=== PATIENT | female | born 1990 ===

== ENCOUNTER → 2020-08-13 08:09 | Outpatient (BNVA) | payer OTHER, SELFPAY | PROVIDERS: PCP Internal Medicine; Visit Provider Advanced Practice Midwife | DX: N92.6 Irregular menstruation, unspecified (principal) | CPT/HCPCS: 81025; 99212 ==

== ENCOUNTER 2020-08-21 10:23 | Outpatient (REF) | payer OTHER, SELFPAY ==
--- NOTE | ~2020-08-21 | US_ITS ---
EXAMINATION: FIRST TRIMESTER OB ULTRASOUND CLINICAL INFORMATION: Dating and viability COMPARISON: None TECHNIQUE: Transabdominal first trimester OB ultrasound FINDINGS: The uterus is normal in size and shape. There is an intrauterine gestational sac. This is slightly low in position in the body of the uterus. Sanctuary-rump length measures 1.5 cm suggesting gestational age of 7 weeks 1 day with estimated date of delivery of 04/07/2021. heart rate is 143 bpm. There is a yolk sac. The cervix is normal appearing. Cervical length measures 3.5 cm. The right ovary is not seen. The left ovary measures 3.9 x 2.8 x 2.5 cm. There is a 1.9 x 1.2 x 1 cm simple left ovarian cyst. There is no fluid in the pelvis. US/US OB pelvic and transvaginal IMPRESSION: Single viable intrauterine . From today's measurements, gestational age is estimated at 7 weeks 1 day with estimated date of delivery of 04/07/2021.
== END 2020-08-21 10:24 | disposition home or self-care (01) ==
LOC: HO.US 10:23
PROVIDERS: Visit Provider Advanced Practice Midwife
DX: Z34.91 Encounter for supervision of normal pregnancy, unspecified, first trimester (principal)
CPT/HCPCS: 76801; 76817

== ENCOUNTER → 2020-09-11 09:59 | Outpatient (BNVA) | payer OTHER, SELFPAY | PROVIDERS: Visit Provider Advanced Practice Midwife | DX: Z34.91 Encounter for supervision of normal pregnancy, unspecified, first trimester (principal); Z3A.10 10 weeks gestation of pregnancy | CPT/HCPCS: 99212 ==

== ENCOUNTER 2020-09-15 10:48 | Outpatient (REF) | payer OTHER, SELFPAY ==
[2020-09-15 13:20] LABS: Mean Corpuscular Volume 83.6 fL (80-98)
[2020-09-15 13:21] LABS: Hematocrit 35.6 % (37-47); Mean Corpuscular HGB Conc 30.9 g/dl (31.0-35.0); Mean Corpuscular Hemoglobin 25.8 pg (27.0-33.0); Red Blood Count 4.26 X10*6/uL (4.20-5.50); Red Cell Distribution Width 15.4 % (11.0-16.0); White Blood Count 9.7 X10*3/uL (4.8-10.8)
[2020-09-15 13:24] LABS: PLT ABN DIST 1
[2020-09-15 13:35] LABS: Glucose 1 Hour PP 50gm Dose 81 mg/dL (60-140)
[2020-09-15 13:39] LABS: Amphetamine Screen Urine Not Detected (Not Detect); Barbiturates, Urine Not Detected (Not Detect); Benzodiazepines Screen Urine Not Detected (Not Detect); Cannabinoid Screen Urine Not Detected (Not Detect); Cocaine Screen Urine Not Detected (Not Detect); Opiate Screen Urine Not Detected (Not Detect); Phencyclidine Screen Urine Not Detected (Not Detect)
[2020-09-15 13:49] LABS: Platelet Count 176 X10*3/uL (160-400)
[2020-09-15 14:07] LABS: Syphilis Screen Nonreactive (Nonreactive)
[2020-09-16 08:51] LABS: Rubella IgG Antibody 2.41 Index
[2020-09-16 09:14] LABS: HBsAGNum1 0.52 S/CO (0.00-0.99); Hepatitis B Surface Antigen Negative (Negative)
[2020-09-16 10:13] LABS: HIV AB/AG Nonreactive (Nonreactive); HIV Num 1 0.05 S/CO (0.00-0.99); ~HepC Num1 0.06 S/CO (0.00-0.79); ~Hepatitis C Antibody Nonreactive (Nonreactive)
== END 2020-09-15 10:49 | disposition home or self-care (01) ==
LOC: HO.LAB 10:48
PROVIDERS: PCP Internal Medicine; Visit Provider Advanced Practice Midwife
DX: Z32.01 Encounter for pregnancy test, result positive (principal)
CPT/HCPCS: 80307; 85027; 86762; 86780; 86787; 86803; 86850; 86900; 86901; 87086; 87340; 87389

== ENCOUNTER 2020-09-18 08:27 | Outpatient (REF) | payer OTHER, SELFPAY ==
[2020-09-19 08:50] LABS: BV Int Neg Control Negative (Negative); BV Int Pos Control Positive (Positive)
[2020-09-19 09:02] LABS: CT PCR NOT DETECTED (Not Detect.); NG PCR NOT DETECTED (Not Detect.)
== END 2020-09-18 08:28 | disposition home or self-care (01) ==
LOC: HO.LAB 08:27
PROVIDERS: Visit Provider Advanced Practice Midwife
DX: Z01.419 Encounter for gynecological examination (general) (routine) without abnormal findings (principal); O26.891 Other specified pregnancy related conditions, first trimester; N89.8 Other specified noninflammatory disorders of vagina; Z3A.11 11 weeks gestation of pregnancy; Z20.2 Contact with and (suspected) exposure to infections with a predominantly sexual mode of transmission
CPT/HCPCS: 81003; 87480; 87491; 87510; 87591; 87660; 88142; 99212

== ENCOUNTER 2020-09-19 08:28 | Outpatient (REF) | payer OTHER, SELFPAY ==
--- NOTE | ~2020-09-19 | US_ITS ---
EXAMINATION: OBSTETRICAL ULTRASOUND, FIRST TRIMESTER HISTORY: 30-year-old at 11.2 weeks of gestation NT screening COMPARISON: 08/21/2020 TECHNIQUE: Real time transabdominal imaging with color and M-mode Doppler. FINDINGS: A single, live IUP CRL of 48.5 mm c/w 11.5wks is noted. Heart Rate: 155 beats per minute. Normal yolk sac seen. NT was 0.73.mm. NB Present The embryo appears sonographically wnl for this GA. Both maternal ovaries are seen and appear normal. GESTATIONAL AGE: 1. Established GA: 11.2 wks 2. GA from [facility]: 11.5 wks ESTIMATED DATE OF DELIVERY: 1. Established KATHRINE: 04/08/2021 2. KATHRINE from [facility]: 04/05/2021 US/US OB 1T nuc measure IMPRESSION: 1. A single live IUP 2. Size equals dates 3. NT of 0.73 mm MFM Consultation: I reviewed the ultrasound findings along with significance of NT measurement. The NT of less than 3mm is generally reassuring. However, the sensitivity for T21 detection is only 60%. I reviewed the availability of serum aneuploidy screening which includes cell-free DNA and placental protein based tests. I discussed the sensitivity, false-positive rate, and other limitations associated with each test. I also reviewed the availability of invasive diagnostic tests that are associated small but definite risk of miscarriage. We also reviewed the differences between screening tests and diagnostic tests. After our discussion, she opted for the First trimester screening that is based on cell-free DNA or non-invasive testing (NIPT). The result will be faxed to your office in approximately 7 days. A follow up at 18 weeks for survey has been scheduled. Thank you very much for this referral. Total time 30 minutes. The time spent was devoted to counseling the patient about the disease and diagnosis, coordinating care including reviewing her records, pertinent lab data and studies, as well as discussing diagnostic evaluation and workup, plan therapeutic interventions and future disposition of care. This includes any additional research needed to obtain further information in formulating the plan of care of this patient. This note was generated with a voice recognition program. Please excuse any errors which may have been overlooked during my review of this note. Sometimes these errors may affect the content or meaning of a given sentence.
== END 2020-09-19 08:29 | disposition home or self-care (01) ==
LOC: HO.US 08:28
PROVIDERS: Visit Provider Advanced Practice Midwife
DX: Z34.90 Encounter for supervision of normal pregnancy, unspecified, unspecified trimester (principal); Z36.82 Encounter for antenatal screening for nuchal translucency
CPT/HCPCS: 76813

== ENCOUNTER → 2020-10-16 08:30 | Outpatient (BNVA) | payer OTHER, SELFPAY | PROVIDERS: Visit Provider Advanced Practice Midwife | DX: Z34.82 Encounter for supervision of other normal pregnancy, second trimester (principal); Z3A.15 15 weeks gestation of pregnancy | CPT/HCPCS: 99212 ==

== ENCOUNTER 2020-11-07 08:28 | Outpatient (REF) | payer OTHER, SELFPAY ==
--- NOTE | ~2020-11-07 | US_ITS ---
EXAMINATION: US OBSTETRICAL CLINICAL INFORMATION: 30-year-old at 18.2 weeks of gestation Screening for anomaly COMPARISON: 09/19/2020 TECHNIQUE: Real-time transabdominal ultrasound was performed using C1-5 megahertz transducer. FINDINGS: A single, active, fetus is seen in breech presentation. The placenta is posterior without previa, and the amniotic fluid volume is wnl. MEASUREMENTS: 1. Biparietal Diameter: 3.9 cm; 17.6 wks 2. Occipital Frontal Diameter: 5.2 cm 3. Head Circumference: 15.2 cm; 18.2 wks 4. Abdominal Circumference: 12.7 cm; 18.2 wks 5. Femur Length: 2.9 cm; 18.6 wks 6. Humerus Length: 2.6 cm; 18.2 wks 7. Tibia Length: 2.3 cm; 18.1 wks 8. Ulna Length: 2.2 cm; 17.6 wks 9. Lateral ventricle: 0.3 cm 10. Cerebellum: 1.9 cm; 19.2 wks 11. Cisterna Magna: 0.4 cm 12. Nuchal Fold: 3.6 mm 13. Heart Rate: 132 beats per minute Rt ovary: normal Lt ovary: normal Cervical length 4.0 cm on T/A. GESTATIONAL AGE: 1. Established GA: 18.2 wks 2. GA from [facility]: 18.3 wks ESTIMATED DATE OF DELIVERY: 1. Established KATHRINE: 04/08/2021 2. KATHRINE from [facility]: 04/07/2021 ANATOMY: The visualized anatomy includes but not limited to: 1. Cranium: Normal 2. Intracranial anatomy: cavum septum pellucidi, lateral ventricles, choroid plexus, cerebellum, posterior fossa, third and fourth ventricles. 3. face: orbits, lip/palate, profile, nasal bone 4. Heart: four-chamber view of the heart, ventricular septum, foramen ovale, pulmonary vein, left and right outflow tracts, three-vessel view, 3 vessel trachea view, aortic and ductal arches, situs.. 5. Diaphragm: Normal 6. Abdominal wall: Normal 7. Cord Insertion: Normal 8. Spine: Cervical, thoracic, lumbar, sacral. 9. Stomach: Normal size and shape 10. Right Kidney: Normal 11. Left Kidney: Normal 12. 3 vessel cord: Normal 13. Upper extremity: Open hands, fifth digit. 14. Lower extremity: Tibia, fibula, bilateral feet. 15. Bladder: Normal 16. Genitalia: Female, patient aware US/US OB /maternal detail IMPRESSION: 1. Single, living, intrauterine with appropriate biometry. 2. Normal survey DISCUSSION: I reviewed today's ultrasound findings. We discussed the limitations of ultrasound in diagnosing aneuploidy and other congenital abnormalities. I reviewed the differences between screening test and diagnostic test. Amniocentesis was discussed and declined. She was informed that the baseline incidence of congenital abnormalities is approximately 3-5%. Not all these conditions are diagnosable in utero. RECOMMENDATIONS: 1. Follow-up as clinically indicated Thank you for allowing me to participate in her care. Total time 20 minutes. The time spent was devoted to counseling the patient about the disease and diagnosis, coordinating care including reviewing her records, pertinent lab data and studies, as well as discussing diagnostic evaluation and workup, plan therapeutic interventions and future disposition of care. This includes any additional research needed to obtain further information in formulating the plan of care of this patient. This note was generated with a voice recognition program. Please excuse any errors which may have been overlooked during my review of this note. Sometimes these errors may affect the content or meaning of a given sentence.
== END 2020-11-07 08:29 | disposition home or self-care (01) ==
LOC: HO.US 08:28
PROVIDERS: Visit Provider Advanced Practice Midwife
DX: O35.9XX0 Maternal care for (suspected) fetal abnormality and damage, unspecified, not applicable or unspecified (principal); Z3A.18 18 weeks gestation of pregnancy
CPT/HCPCS: 76811; 76812

== ENCOUNTER → 2020-11-14 08:14 | Outpatient (BNVA) | payer OTHER, SELFPAY | PROVIDERS: Visit Provider Advanced Practice Midwife | DX: Z34.82 Encounter for supervision of other normal pregnancy, second trimester (principal) | CPT/HCPCS: 81003; 99212 ==

== ENCOUNTER → 2020-12-15 12:23 | Outpatient (BNVA) | payer OTHER, SELFPAY | PROVIDERS: PCP Internal Medicine; Visit Provider Obstetrics & Gynecology | DX: Z34.82 Encounter for supervision of other normal pregnancy, second trimester (principal); Z3A.23 23 weeks gestation of pregnancy | CPT/HCPCS: 99212 ==

== ENCOUNTER 2021-01-08 07:40 | Outpatient (REF) | payer OTHER, SELFPAY ==
[2021-01-08 09:17] LABS: Red Cell Distribution Width 15.9 % (11.0-16.0)
[2021-01-08 09:18] LABS: Hematocrit 27.6 % (37-47); Hemoglobin 8.2 g/dl (12.0-16.0); Mean Corpuscular HGB Conc 29.7 g/dl (31.0-35.0); Mean Corpuscular Hemoglobin 23.6 pg (27.0-33.0); Mean Corpuscular Volume 79.5 fL (80-98); Mean Platelet Volume 13.7 fL (9.4-12.3); Platelet Count 142 X10*3/uL (160-400); Red Blood Count 3.47 X10*6/uL (4.20-5.50); White Blood Count 11.2 X10*3/uL (4.8-10.8)
[2021-01-08 09:34] LABS: Glucose 1 Hour PP 50gm Dose 120 mg/dL (60-140)
[2021-01-09 09:00] LABS: Syphilis Screen Nonreactive (Nonreactive)
== END 2021-01-08 07:41 | disposition home or self-care (01) ==
LOC: HO.LAB 07:40
PROVIDERS: PCP Internal Medicine; Visit Provider Obstetrics & Gynecology
DX: Z34.92 Encounter for supervision of normal pregnancy, unspecified, second trimester (principal)
CPT/HCPCS: 36415; 85027; 86780

== ENCOUNTER 2021-01-15 07:50 | Outpatient (REF) | payer OTHER, SELFPAY ==
[2021-01-15 14:14] LABS: CT PCR NOT DETECTED (Not Detect.); NG PCR NOT DETECTED (Not Detect.)
[2021-01-16 08:29] LABS: BV Int Neg Control Negative (Negative)
[2021-01-16 08:30] LABS: BV Int Pos Control Positive (Positive)
== END 2021-01-15 07:51 | disposition home or self-care (01) ==
LOC: HO.LAB 07:50
PROVIDERS: PCP Internal Medicine; Visit Provider Obstetrics & Gynecology
DX: Z23 Encounter for immunization (principal); O26.892 Other specified pregnancy related conditions, second trimester; N89.8 Other specified noninflammatory disorders of vagina
CPT/HCPCS: 87480; 87491; 87510; 87591; 87660; 90471; 90715; 99212

== ENCOUNTER → 2021-01-28 08:16 | Outpatient (BNVA) | payer OTHER, SELFPAY | PROVIDERS: PCP Internal Medicine; Visit Provider Obstetrics & Gynecology | DX: O99.013 Anemia complicating pregnancy, third trimester (principal); Z3A.30 30 weeks gestation of pregnancy | CPT/HCPCS: 81003; 90686; 99212 ==

== ENCOUNTER → 2021-02-11 08:28 | Outpatient (BNVA) | payer OTHER, SELFPAY | PROVIDERS: PCP Internal Medicine; Visit Provider Advanced Practice Midwife | DX: O99.013 Anemia complicating pregnancy, third trimester (principal); Z3A.32 32 weeks gestation of pregnancy | CPT/HCPCS: 81003; 99212 ==

== ENCOUNTER → 2021-02-27 08:47 | Outpatient (BNVA) | payer OTHER, SELFPAY | PROVIDERS: PCP Internal Medicine; Visit Provider Advanced Practice Midwife | DX: O99.013 Anemia complicating pregnancy, third trimester (principal); Z3A.34 34 weeks gestation of pregnancy | CPT/HCPCS: 81003; 99212 ==

== ENCOUNTER 2021-03-13 08:28 | Outpatient (REF) | payer OTHER, SELFPAY ==
[2021-03-13 16:26] LABS: CT PCR NOT DETECTED (Not Detect.); NG PCR NOT DETECTED (Not Detect.)
== END 2021-03-13 08:29 | disposition home or self-care (01) ==
LOC: HO.LAB 08:28
PROVIDERS: PCP Internal Medicine; Visit Provider Advanced Practice Midwife
DX: Z34.93 Encounter for supervision of normal pregnancy, unspecified, third trimester (principal); Z3A.36 36 weeks gestation of pregnancy
CPT/HCPCS: 81003; 87081; 87147; 87491; 87591; 99212

== ENCOUNTER 2021-04-11 18:02 | Emergency (ER) | payer OTHER, SELFPAY ==
--- NOTE | ~2021-04-11 | US_ITS ---
EXAMINATION: US VENOUS ULTRASOUND WITH DOPPLER LOWER EXTREMITY, LEFT CLINICAL INFORMATION: Calf pain COMPARISON: None TECHNIQUE: Ultrasound of the deep veins is performed from the hip to the calf with compression sonography and color and pulse Doppler assessment. Spectral analysis with color-flow imaging is performed. FINDINGS: There is normal venous compression and respiratory variation and augmented flow. The visualized common femoral vein, superficial femoral vein, profunda femoral vein, popliteal vein, and the trifurcation region shows no evidence of deep venous thrombosis. There is no significant popliteal fossa cyst. If the patient's symptoms persist, followup ultrasound in 5 days 7 days might be of value to exclude proximal propagation from a non-visualized calf vein. US/US venous duplex LE LT IMPRESSION: No DVT demonstrated in the left lower extremity.
[2021-04-11 18:13] VITALS: BP 113/80; PULSE 66; RESP 18; TEMP 36.8; O2SAT 99; BMI 33.3
--- NOTE | 2021-04-11 20:06 | ED_ITS ---
HPI - General Adult General Chief complaint: General Medical Stated complaint: calf pain, ?blood clot Time Seen by Provider: 04/11/21 18:20 Limitations: no limitations History of Present Illness HPI narrative: This is a 30-year-old female who is about 5 days , and who has noted intermittent cramping in her left calf. She thought she noted some calf swelling as well. The patient notes she was told to avoid any heavy lifting but has been doing heavy lifting. She delivered vaginally, has also had few intermittent cramps in her lower abdomen. She denies fever, chest pain, or shortness of breath (she did have brief shortness of breath in the waiting room, but believes this was due to anxiety). She is currently . Related Data Previous Rx's Medication Instructions Recorded PNV 153-FA 400 mcg-om3 35 mg-dha 1 tab PO DAILY #30 tab 08/13/20 25 mg-epa 5 mg-fish oil chew tablet ( Gummies) cyanocobalamin (vitamin B-12) 1,000 mcg PO DAILY #90 tab 01/12/21 1,000 mcg tablet (Vitamin B-12) ferrous sulfate 325 mg (65 mg 325 mg PO BID #60 tab 01/12/21 iron) tablet Allergies Allergy/AdvReac Type Severity Reaction Status Date / Time No Known Allergies Allergy Verified 04/11/21 18:13 [No Known Allergies*] Review of Systems Constitutional: Constitutional: Denies fever(s) Cardiovascular: Cardiovascular: Reports no additional cardiovascular complaints Respiratory: Respiratory: Reports no additional respiratory complaints Gastrointestinal: Gastrointestinal: Denies nausea and Denies vomiting Musculoskeletal: Musculoskeletal: Reports muscle cramps Neurologic: Denies Sensory deficit (Neuro) [facility] Past Medical History Medical History (Updated 04/11/21 @ 20:19 by Sarthak Godinez MD) Anemia Surgical History No pertinent past surgical history Family History Family History Father Medical history non-contributory Mother Depression Chronic mental illness Maternal Grandmother Parkinson disease Depression Hypertension CVD (cardiovascular disease) Diabetes Maternal Grandfather Diabetes Hypertension Social History Social History Household Members: Spouse and Children Housing: Apartment Alcohol intake: former Patient Tobacco Use Status: Never used Tobacco Trauma History: no hx Advance Directives: No Advance Directives Information Provided: No Patient : No Sexual orientation: Straight/Heterosexual Gender identity: Female Physical Exam Vital Signs: Vital Signs: Last Vital Signs Temp 98.3 F 04/11/21 18:13 Pulse 66 04/11/21 18:13 Resp 18 04/11/21 18:13 BP 113/80 04/11/21 18:13 Pulse Ox 99 04/11/21 18:13 BMI result Body Mass Index 33.3 Const: Other: Patient initially sitting up on the gurney, breast pumping. Patient appears well clinically. No calf swelling or tenderness noted. No fullness or cords in the popliteal area or posterior thigh. No pedal edema. General: cooperative, no acute distress and alert Orientation/consciousness: patient oriented x3 HENMT: Head: Yes normal to inspection Eyes: General: appearance normal, both eyes and all related structures Eyelids: Yes eyelids normal Conjunctivae: conjunctivae normal Pupils: Equal, round and reactive pupils present Neck: Neck: Yes normal visual inspection and Yes supple Chest: Chest palpation & inspection: normal inspection of the chest Resp: Effort & Inspection: normal respiratory effort Auscultation: clear to auscultation bilaterally Cardio: Rate: regular rate Rhythm: regular rhythm Heart sounds: S1 normal heart sound present, S2 normal heart sound present, no gallops, no murmurs and no rubs GI: Palpation (GI): Soft to palpation, nontender and Other GI palpation findings present (Non-distended) Auscultation: normal bowel sounds Skin: General skin exam: no rashes or lesions noted Neuro: General: patient oriented x3, no focal motor deficits and CN's II-XI intact bilaterally Cranial nerves: Yes Equal, round and reactive pupils present Cognition (Neuro): normal cognition Motor exam (neuro): 5/5 motor strength present throughout Sensory Exam: No Sensory deficit (Neuro) Extrem: General: Yes normal to inspection and Yes no pedal edema Psych: Appearance: grossly normal Affect: normal affect Medical Decision Making MDM Narrative Medical decision making narrative: Patient recently , had some mild left calf pain, intermittent. No concerning findings on exam. Ultrasound negative for DVT. Imaging Data Venous US: Radiologist's impression: IMPRESSION: No DVT demonstrated in the left lower extremity. Discharge Plan Discharge Clinical Impression: Cramps of left lower extremity Patient Disposition: Home, Self-Care Instructions: Muscle Cramp (ED) Additional Instructions: Use acetaminophen as needed for pain. Follow up with her OBGYN as needed. Return for any new or worsened symptoms such as increased leg pain or swelling. There is no evidence of a blood clot in her leg today by ultrasound, and your exam was normal Prescriptions: No Action ferrous sulfate 325 mg (65 mg iron) Tablet 325 mg PO BID Qty: 60 RF: 3 cyanocobalamin (vitamin B-12) [Vitamin B-12] 1,000 mcg Tablet 1,000 mcg PO DAILY Qty: 90 RF: 3 Gummies 400 mcg-35 mg- 25 mg-5 mg tablet,chewable 1 tab PO DAILY Qty: 30 RF: 11
== END 2021-04-11 20:48 | disposition home or self-care (01) ==
PROVIDERS: Emergency Provider Emergency Medicine; PCP Internal Medicine
DX: M79.662 Pain in left lower leg (principal); Z39.1 Encounter for care and examination of lactating mother
CPT/HCPCS: 93971; 99283; 99284

== ENCOUNTER → 2021-04-17 11:44 | Outpatient (BNVA) | payer OTHER, SELFPAY | PROVIDERS: PCP Internal Medicine; Visit Provider Advanced Practice Midwife ==

== ENCOUNTER 2021-05-20 10:02 | Outpatient (REF) | payer OTHER, SELFPAY ==
[2021-05-20 11:44] LABS: Hematocrit 43.1 % (37.0-47.0); Hemoglobin 13.3 g/dl (12.0-16.0); Mean Corpuscular HGB Conc 30.9 g/dl (31.0-35.0); Mean Corpuscular Hemoglobin 27.3 pg (27.0-33.0); Mean Corpuscular Volume 88.3 fL (80.0-98.0); Mean Platelet Volume 12.4 fL (9.4-12.3); Platelet Count 170 X10*3/uL (160-400); Red Blood Count 4.88 X10*6/uL (4.20-5.50); Red Cell Distribution Width 12.9 % (11.0-16.0); White Blood Count 5.2 X10*3/uL (4.8-10.8)
[2021-05-20 12:29] LABS: Thyroid Stimulating Hormone 2.11 uIU/mL (0.32-4.0)
[2021-05-20 15:36] LABS: CT PCR NOT DETECTED (Not Detect.); NG PCR NOT DETECTED (Not Detect.)
== END 2021-05-20 10:03 | disposition home or self-care (01) ==
LOC: HO.LAB 10:02
PROVIDERS: PCP Internal Medicine; Visit Provider Advanced Practice Midwife
DX: Z39.2 Encounter for routine postpartum follow-up (principal); Z20.2 Contact with and (suspected) exposure to infections with a predominantly sexual mode of transmission; D64.9 Anemia, unspecified; R53.83 Other fatigue
CPT/HCPCS: 36415; 84443; 85027; 87491; 87591; 99212

== ENCOUNTER → 2021-08-28 09:57 | Outpatient (BNVA) | payer OTHER, SELFPAY | PROVIDERS: PCP Internal Medicine; Visit Provider Advanced Practice Midwife | DX: Z30.41 Encounter for surveillance of contraceptive pills (principal); Z39.1 Encounter for care and examination of lactating mother | CPT/HCPCS: 99212 ==

== ENCOUNTER 2021-09-11 12:09 | Outpatient (REF) | payer OTHER, SELFPAY ==
[2021-09-11 18:20] LABS: CT PCR NOT DETECTED (Not Detect.); NG PCR NOT DETECTED (Not Detect.)
[2021-09-12 10:26] LABS: BV Int Neg Control Negative (Negative); BV Int Pos Control Positive (Positive)
== END 2021-09-11 12:10 | disposition home or self-care (01) ==
LOC: HO.LAB 12:09
PROVIDERS: Visit Provider Advanced Practice Midwife
DX: Z11.3 Encounter for screening for infections with a predominantly sexual mode of transmission (principal); N76.0 Acute vaginitis; N92.1 Excessive and frequent menstruation with irregular cycle; Z20.2 Contact with and (suspected) exposure to infections with a predominantly sexual mode of transmission
CPT/HCPCS: 87480; 87491; 87510; 87591; 87660; 99212

== ENCOUNTER 2022-02-09 10:22 | Outpatient (REF) | payer OTHER, SELFPAY ==
[2022-02-10 13:58] LABS: BV Int Neg Control Negative (Negative); BV Int Pos Control Positive (Positive)
[2022-02-10 14:07] LABS: CT PCR INVALID (Not Detect.)
[2022-02-10 14:08] LABS: NG PCR INVALID (Not Detect.)
== END 2022-02-09 10:23 | disposition home or self-care (01) ==
LOC: HO.LNP 10:22
PROVIDERS: Visit Provider Advanced Practice Midwife
DX: N89.8 Other specified noninflammatory disorders of vagina (principal); Z11.3 Encounter for screening for infections with a predominantly sexual mode of transmission; Z30.09 Encounter for other general counseling and advice on contraception
CPT/HCPCS: 87480; 87491; 87510; 87591; 87660; 99212

== ENCOUNTER 2022-02-12 08:23 | Outpatient (REF) | payer OTHER, SELFPAY ==
[2022-02-12 16:10] LABS: CT PCR NOT DETECTED (Not Detect.); NG PCR NOT DETECTED (Not Detect.)
== END 2022-02-12 08:24 | disposition home or self-care (01) ==
LOC: HO.LAB 08:23
PROVIDERS: PCP Internal Medicine; Visit Provider Advanced Practice Midwife
DX: Z11.3 Encounter for screening for infections with a predominantly sexual mode of transmission (principal); Z20.2 Contact with and (suspected) exposure to infections with a predominantly sexual mode of transmission
CPT/HCPCS: 87491; 87591

== ENCOUNTER 2022-08-25 14:57 | Outpatient (REF) | payer BC, MEDICAID, SELFPAY ==
[2022-08-26 02:37] LABS: CT PCR DETECTED (Not Detect.); NG PCR NOT DETECTED (Not Detect.)
[2022-08-26 08:56] LABS: BV Int Neg Control Negative (Negative); BV Int Pos Control Positive (Positive)
== END 2022-08-25 14:58 | disposition home or self-care (01) ==
LOC: HO.LNP 14:57
PROVIDERS: PCP Internal Medicine; Visit Provider Advanced Practice Midwife
DX: Z01.419 Encounter for gynecological examination (general) (routine) without abnormal findings (principal); Z20.2 Contact with and (suspected) exposure to infections with a predominantly sexual mode of transmission
CPT/HCPCS: 0353U; 87480; 87510; 87660

== ENCOUNTER 2022-08-31 06:42 | Outpatient (REF) | payer BC, MEDICAID, SELFPAY ==
[2022-09-01 04:48] LABS: Syphilis Screen Nonreactive (Nonreactive)
[2022-09-01 05:19] LABS: HBsAGNum1 0.28 S/CO (0.00-0.99); HIV AB/AG Nonreactive (Nonreactive); HIV Num 1 0.06 S/CO (0.00-0.99); Hepatitis B Surface Antigen Negative (Negative); ~Hepatitis C Antibody Nonreactive (Nonreactive)
== END 2022-08-31 06:43 | disposition home or self-care (01) ==
LOC: HO.LAB 06:42
PROVIDERS: PCP Internal Medicine; Visit Provider Advanced Practice Midwife
DX: Z11.4 Encounter for screening for human immunodeficiency virus [HIV] (principal); A74.9 Chlamydial infection, unspecified; Z20.2 Contact with and (suspected) exposure to infections with a predominantly sexual mode of transmission
CPT/HCPCS: 36415; 86780; 86803; 87340; 87389

== ENCOUNTER 2022-09-21 11:17 | Outpatient (REF) | payer BC, MEDICAID, SELFPAY ==
[2022-09-21 17:44] LABS: CT PCR NOT DETECTED (Not Detect.); NG PCR NOT DETECTED (Not Detect.)
[2022-09-22 09:45] LABS: BV Int Neg Control Negative (Negative); BV Int Pos Control Positive (Positive)
== END 2022-09-21 11:18 | disposition home or self-care (01) ==
LOC: HO.LNP 11:17
PROVIDERS: PCP Internal Medicine; Visit Provider Advanced Practice Midwife
DX: Z30.09 Encounter for other general counseling and advice on contraception (principal); Z20.2 Contact with and (suspected) exposure to infections with a predominantly sexual mode of transmission; A74.9 Chlamydial infection, unspecified
CPT/HCPCS: 0353U; 81025; 87480; 87510; 87660

== ENCOUNTER 2022-11-01 08:59 | Outpatient (AMB) | payer BC, MEDICAID, SELFPAY ==
--- NOTE | 2022-11-01 09:05 | A.OFFVIS_ITS ---
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 She started with some vaginal itching and irritation on the after having sex with her and then she thought she cut herself from scratching and she looked with the mirror and she has little cuts at the base of her vagina and she starting to get little bumps on her labia and it has been very itchy and Burny and the bumps are uncomfortable and painful she is on pills for control and wants to stay on those despite previous interested in a ParaGard IUD. She is with the father of her baby and they recently had chlamydia and she says they were both treated and he was definitely the source he has a test of cure coming up and she has a test of cure scheduled on the of this month. on detailed questioning she says she is not aware and she does not know if he ever had oral herpes they have had oral sex.. To her knowledge neither have ever had genital herpes. She has not had anything like this before. [facility] Medical History Anemia Lactating mother Surgical History No pertinent past surgical history Family History Father Medical history non-contributory Mother Depression Chronic mental illness Maternal Grandmother Parkinson disease Depression Hypertension CVD (cardiovascular disease) Diabetes Maternal Grandfather Diabetes Hypertension Social History Household Members: Spouse and Children Both parents involved: Yes Housing: Apartment Alcohol intake: former Patient Tobacco Use Status: Never used Tobacco Trauma History: no hx Sexual orientation: Straight/Heterosexual Gender identity: Female Female Reproductive History Menstrual Age of Menarche: 12 Duration of menses: 3-5 days Date of last menstrual period: 10/11/22 control method: pills Total pregnancies: 3 Number of Living Children: 2 Ab spontaneous: 1 Date of last pap smear: 09/19/20 (negative) History of abnormal pap smear: No Physical Exam Vital Signs: Last Vital Signs BP 100/52 L 11/01/22 09:07 BMI result Body Mass Index 26.5 Other: external labia majora within normal limits labia minora are slightly pink and inflamed there are some open ulcerated on removed lesions at her perineum and vesicles erupting in various stages on labia minora both right and left with at least to appearing to be opening currently on left and 1 at least on right but there are multiple vesicles erupting in both areas. Speculum exam carefully done to avoid as much as possible transmitting from those areas to the inside and testing for GC chlamydia trichomoniasis bacterial vaginosis and Yina was done. Patient was shown lesions with mirror her careful hand washing discussed in detail and will treat for primary herpes outbreak as well as Yina. Assessment & Plan Assessment & Plan (1) Chlamydia infection: Comment: 08/27/22. Code(s): A74.9 - Chlamydial infection, unspecified (2) Cervical cancer screening: Comment: 09/18/20 pap= neg Code(s): Z12.4 - Encounter for screening for malignant neoplasm of cervix (3) Possible exposure to STD: Comment: Posi. It is counseling and partner treatment as well tive chlamydia to be treated with doxy Cyclen also Gardnerella to be treated with treatment of choice Code(s): Z20.2 - Contact with and (suspected) exposure to infections with a predominantly sexual mode of transmission (4) Vulvar candidiasis: Code(s): B37.31 - Acute candidiasis of vulva and vagina (5) Primary genital herpes simplex infection: Code(s): A60.00 - Herpesviral infection of urogenital system, unspecified Plan ---I discussed with the patient my strong suspicion that this in the is a primary outbreak of herpes. I explained the cultures and how long it would take to get the results, but because I strongly suspect that this is herpes, I ordered valalcyclovir for 10 days per cdc guidelines . --If appropriate, I also ordered from the following- Lidocaine Gel, Zovirax, and antifungals/ yeast preparations as needed. Also OTC pain relievers may be helpful. --I reviewed primary HSV transmission and patterns of transmission, oral to genital, as well as genital to genital, and oral to oral, and to other sites as well. -- I discussed normal pathophysiology of the herpes virus, and patterns of recurrence, and contributing factors that can lead to an outbreak or recurrence. I discussed transmission in great detail, and comfort measures in detail. -- I also recommend use of cool spray bottle of water, for estee care, to help her void ( spray while voiding and after), if that becomes painful. She may develop more lesions if this is early in the outbreak cycle. --Safer sex and limitations of condoms discussed. ( i e- they do not ever protect from vulvar or scrotal contact) I discussed other std testing as well ( hiv, hep b & c, rpr, gc/chlamydia, tr ichomoniasis), as well as common concurrent bacterial vaginosis or yeast. --additionally I addressed the enormous a motion all challenge that this presents and discussed the feelings that this always brings up. --discussed as well, issues with partner discussions, and transmission, and history and the challenge of sometimes figuring out original contact source. --also discussed personal hygiene and safety as regards intimate towels, clothing, and avoiding inadvertent touching of potentially infectious areas and then touching other mucosal membranes or open lesions, including eyes, and also protecting babies from inappropriate contact with these. --I requested that she return for a follow up visit in 10-14 days, --If needed, she may have an excuse to stay home from work or school during the worst part of this..- she declined because she wants to go to work. I am treating her with valacyclovir for 10 days twice a day to start as soon as she picks up the prescription. And I gave her prescription for Monistat cream which she may use as she feels fit and I did stress careful careful careful hand washing and being super conscious of when she touches herself in that area or anything else and not touching her eyes as she did during the visit before I could stop her hand going to her eye. - I told her is is probably going to get worse before gets better because it appears that the vesicles are just erupting now and some of them are just beginning to open and unroof. I recommend that she by a cheap plastic water bottle or catch up bottle at [facility] when she picks up her prescription so she can bring it to work and sprayed cool water while she voids so that it is less burny. I also recommend she drink lots of water so the urine is not to hot and concentrated. We will see her in 2 weeks but she since she has an appointment on the that is acceptable and will keep that appointment.. Did order blood work for her which she may do when she can. - She stressed that is not possible at all to say where the regional source of the herpes was from and neither she or he could have had oral herpes and transmitted it to the other unknowingly and a during oral sex it is possible to transmitt it from oral to genital. Orders: Orders Bacterial Vaginosis Panel Today N89.8 - Other specified noninflammatory disorders of vagina CT NG by PCR Today N89.8 - Other specified noninflammatory disorders of vagina Hepatitis B Surface Antigen Today A60.00 - Herpesviral infection of urogenital system, unspecified, Z20.2 - Contact with and (suspected) exposure to infections with a predominantly sexual mode of transmission Hepatitis C Antibody Today A60.00 - Herpesviral infection of urogenital system, unspecified, Z20.2 - Contact with and (suspected) exposure to infections with a predominantly sexual mode of transmission HIV Ab/Ag Today A60.00 - Herpesviral infection of urogenital system, unspecified, Z20.2 - Contact with and (suspected) exposure to infections with a predominantly sexual mode of transmission Syphilis Screen Today A60.00 - Herpesviral infection of urogenital system, unspecified, Z20.2 - Contact with and (suspected) exposure to infections with a predominantly sexual mode of transmission Herpes Virus Culture rflx Type Today N89.8 - Other specified noninflammatory disorders of vagina Medications: New valacyclovir 1,000 mg PO DAILY 20 tabs 0RF miconazole nitrate 2% (Miconazole-7) 1 appful vaginal BEDTIME 7 days 45 grams 1RF Coding Level of Care Code Est Pt Level 4 (93552) Diagnoses Chlamydia infection A74.9 Cervical cancer screening Z12.4 Possible exposure to STD Z20.2 Vulvar candidiasis B37.31 Primary genital herpes simplex infection A60.00
[2022-11-01 09:07] VITALS: BP 100/52; BMI 26.5
== END 2022-11-01 10:04 | disposition home or self-care (01) ==
LOC: HO.HWS 08:59
PROVIDERS: PCP Internal Medicine; Visit Provider Advanced Practice Midwife
DX: A74.9 Chlamydial infection, unspecified (principal); Z12.4 Encounter for screening for malignant neoplasm of cervix; Z20.2 Contact with and (suspected) exposure to infections with a predominantly sexual mode of transmission; B37.31 Acute candidiasis of vulva and vagina; A60.00 Herpesviral infection of urogenital system, unspecified
CPT/HCPCS: 99214

== ENCOUNTER 2022-11-01 08:59 | Outpatient (REF) | payer BC, MEDICAID, SELFPAY ==
[2022-11-02 05:56] LABS: CT PCR NOT DETECTED (Not Detect.); NG PCR NOT DETECTED (Not Detect.)
[2022-11-02 12:05] LABS: BV Int Neg Control Negative (Negative); BV Int Pos Control Positive (Positive)
== END 2022-11-01 09:00 | disposition home or self-care (01) ==
LOC: HO.LNP 08:59
PROVIDERS: PCP Internal Medicine; Visit Provider Advanced Practice Midwife
DX: N89.8 Other specified noninflammatory disorders of vagina (principal)
CPT/HCPCS: 0353U; 87255; 87480; 87510; 87660

== ENCOUNTER 2022-11-05 07:34 | Outpatient (REF) | payer BC, MEDICAID, SELFPAY ==
[2022-11-05 09:05] LABS: HBsAGNum1 0.39 S/CO (0.00-0.99); HIV AB/AG Nonreactive (Nonreactive); HIV Num 1 0.05 S/CO (0.00-0.99); Hepatitis B Surface Antigen Negative (Negative); ~HepC Num1 0.08 S/CO (0.00-0.79); ~Hepatitis C Antibody Nonreactive (Nonreactive)
[2022-11-05 10:08] LABS: Syphilis Screen Nonreactive (Nonreactive)
== END 2022-11-05 07:35 | disposition home or self-care (01) ==
LOC: HO.LAB 07:34
PROVIDERS: PCP Internal Medicine; Visit Provider Advanced Practice Midwife
DX: A60.00 Herpesviral infection of urogenital system, unspecified (principal); Z20.2 Contact with and (suspected) exposure to infections with a predominantly sexual mode of transmission
CPT/HCPCS: 36415; 86780; 86803; 87340; 87389

== ENCOUNTER 2023-01-26 13:25 | Outpatient (AMB) | payer BC, MEDICAID, SELFPAY ==
[2023-01-26 13:35] VITALS: BP 106/68; BMI 27.4
--- NOTE | 2023-01-26 13:35 | A.OFFVIS_ITS ---
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 Information Interpreted: non-clinical & clinical Gate Watchman: Gate Watchman Present (Avelina TOMLINSON) Allergies No Known Allergies [No Known Allergies*] Allergy (Verified 01/26/23 13:36) Medication List - Last Reconciled 01/26/23 by Talita Herrera CNM No Known Home Meds Is last menstrual period known: Yes Last menstrual period: 01/07/23 HPI JOSÉ Follow up HPI Details Patient did not quite remember why she was here she thought it was here for a test of cure for the chlamydia that she had had though it appears that she did have some negative cultures/testing done after the positive chlamydia that she had had Aug 25 2022. Also at the last visit she had had a recurrence of lesions that had presented with some itching and they tested positive for herpes simplex type 1. Teaching was done both at the time of the testing and afterwards as well she says she has not had any had recurrences though sometimes she gets itching but no more lesions. She is currently using condoms for now and she is wondering about getting her tubes tied she is not 100% positive she does not want to use anything with hormones. And she does not like the idea of IUDs. PFSH Medical History Lactating mother Anemia Surgical History No pertinent past surgical history Family History Father Medical history non-contributory Mother Depression Chronic mental illness Maternal Grandmother Parkinson disease Depression Hypertension CVD (cardiovascular disease) Diabetes Maternal Grandfather Diabetes Hypertension Social History Household Members: Spouse and Children Both parents involved: Yes Housing: Apartment Alcohol intake: former Patient Tobacco Use Status: Never used Tobacco Trauma History: no hx Sexual orientation: Straight/Heterosexual Gender identity: Female Female Reproductive History Menstrual Age of Menarche: 12 Date of last menstrual period: 01/07/23 Physical Exam Vital Signs: Last Vital Signs BP 106/68 01/26/23 13:35 BMI result Body Mass Index 27.4 Other: Very normal appearing speculum exam normal the vaginal mucosa and mucus cervix multiparous pink clear healthy appearing testing done for gonorrhea chlamydia trichomoniasis Gardnerella and Yina. Bimanual deferred as not necessary no lesions evident today. External Female Exam: normal external appearance and normal appearance of the urethra Speculum Exam - Vagina: normal appearance of the vagina and normal vaginal discharge Speculum Exam - Cervix: normal appearance of the cervix and Cervical os closed Assessment & Plan Assessment & Plan (1) Primary genital herpes simplex infection: Comment: Type 1 was isolated. patient has been treated and educated at the visit Code(s): A60.00 - Herpesviral infection of urogenital system, unspecified (2) Chlamydia infection: Comment: 08/27/22.; treated, test of cure done.... Code(s): A74.9 - Chlamydial infection, unspecified (3) control counseling: Code(s): Z30.09 - Encounter for other general counseling and advice on contraception Plan Again reviewed the pathophysiology of herpes simplex virus both type 1 and type 2 and how it can be passed from 1 person to the next both orally and generally and vice versa. Reviewed again how the virus is always present but retreats into the nerve endings and only erupt under certain stressors such as irritation or itching she says she has some itching but it is not severe and she does not have any lesions reviewed again that this could be yeast and not necessarily HSV though often times if somebody has a yeast infection or irritation from some other reason it can precipitate an HSV outbreak. Testing today was done for gonorrhea chlamydia trichomoniasis Gardnerella and Yina. Other testing declined. Also discussed control she inquired about what was involving getting her tubes tied and I explained that it is permanent surgery the risks involved in including infection damage to other organs bleeding and the biggest risk of regret and that she needs to be 100% certain before she embarks on that. Also discussed the alternatives such as IUDs both with and without hormones but she says she is not interested. She will think about it and I told her that if she is interested she needs to make an appointment and have a conversation with Dr. Rodriguez and signed papers and then proceed with scheduled surgery. Discussed that it would not be appropriate to do it until she is 100% certain. Orders: Orders CT NG by PCR Today A74.9 - Chlamydial infection, unspecified Bacterial Vaginosis Panel Today A74.9 - Chlamydial infection, unspecified Coding Level of Care Code Est Pt Level 3 (06377) Diagnoses Primary genital herpes simplex infection A60.00 Chlamydia infection A74.9 control counseling Z30.09
== END 2023-01-26 14:50 | disposition home or self-care (01) ==
LOC: HO.HWS 13:25
PROVIDERS: PCP Internal Medicine; Visit Provider Advanced Practice Midwife
DX: A60.00 Herpesviral infection of urogenital system, unspecified (principal); A74.9 Chlamydial infection, unspecified; Z30.09 Encounter for other general counseling and advice on contraception
CPT/HCPCS: 99213

== ENCOUNTER 2023-01-26 13:25 | Outpatient (REF) | payer BC, MEDICAID, SELFPAY ==
[2023-01-26 16:48] LABS: CT PCR NOT DETECTED (Not Detect.); NG PCR NOT DETECTED (Not Detect.)
[2023-01-27 13:55] LABS: BV Int Neg Control Negative (Negative); BV Int Pos Control Positive (Positive)
== END 2023-01-26 13:26 | disposition home or self-care (01) ==
LOC: HO.LNP 13:25
PROVIDERS: PCP Internal Medicine; Visit Provider Advanced Practice Midwife
DX: A74.9 Chlamydial infection, unspecified (principal); A60.00 Herpesviral infection of urogenital system, unspecified
CPT/HCPCS: 0353U; 87480; 87510; 87660

== ENCOUNTER 2023-01-27 08:44 | Outpatient (AMB) | payer BC, MEDICAID, SELFPAY ==
[2023-01-27 08:51] VITALS: BP 110/60; PULSE 71; O2SAT 99; BMI 27.5
--- NOTE | 2023-01-27 08:51 | A.OFFPC_ITS ---
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: No Accompanied by: Self / Same As Patient Allergies No Known Allergies [No Known Allergies*] Allergy (Verified 01/27/23 09:20) Medication List - Last Reconciled 01/27/23 by Pato Day MD PNV [id number] 400 mcg-35 mg- 25 mg-5 mg ( Gummies) 1 tab PO DAILY Tobacco use date assessed: 01/27/23 Dental Screening Dental Screen Date: 01/27/23 Did you have a dental visit in the last 12 months?: Yes Did you have a dental problem in the last 6 months where you did not have access to dental care?: No Was dental information given to patient?: Patient has dentist HPI 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 HPI Details Patient comes in today for her annual physical examination and to reestablish care - was last seen here for her one-time visit and physical exam back on 02/03/2018 (patient has not been back since) States that she feels okay but has a few issues that she would like to have checked out Has woken up in the middle of the night occasionally over the past few months and noticed that her heart feels like it is racing; has also noted that her legs feel numb during these situations and finds that she has to drink some water and it takes a while for things to calm down Denies experiencing any palpitations, tachycardia or irregular heart beats when she is awake and active Also notes that her right hip feels like it gets stuck every now and then when she is walking - noted that this seems to have started after she had her 2nd baby last year States that her is no pain in her hip when this occurs but it feels uncomfortable and she has to move and stretch her right leg a couple of times to relieve the sensation in her hip Denies any history of injury or trauma to her right hip Lastly, relates (+) occasional pain and discomfort in her wrists, especially the right wrist 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 that 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 start hurting after working for a while Has also noticed that the bone sticking out on her wrist seems to be bigger on her left wrist - is not sure if this has any relevance or not She denies any headaches or dizziness Denies any chest pains, no SOB No nausea/vomiting, no abdominal pain No change in bowel habits noted Denies any acute urinary symptoms PFSH Medical History Lactating mother Anemia Surgical History No pertinent past surgical history Family History Father Medical history non-contributory Mother Depression Chronic mental illness Maternal Grandmother Parkinson disease Depression Hypertension CVD (cardiovascular disease) Diabetes Maternal Grandfather Diabetes Hypertension Social History Household Members: Spouse and Children Housing: Apartment Alcohol intake: former Patient Tobacco Use Status: Never used Tobacco Trauma History: no hx Sexual orientation: Straight/Heterosexual Gender identity: Female Cognitive needs: No Hearing needs: No Vision needs: No Female Reproductive History Menstrual Age of Menarche: 12 Questionnaire PHQ-9 Over the last 2 weeks, how often have you been bothered by any of the following problems? 1. Little interest or pleasure in doing things: not at all 2. Feeling down, depressed, or hopeless: not at all 3. Trouble falling or staying asleep, or sleeping too much: not at all 4. Feeling tired or having little energy: not at all 5. Poor appetite or overeating: not at all 6. Feeling bad about yourself - or that you are a failure or have let yourself or your family down: not at all 7. Trouble concentrating on things, such as reading the newspaper or watching television: not at all 8. Moving or speaking so slowly that other people could have noticed. Or the opposite - being so fidgety or restless that you have been moving around a lot more than usual: not at all 9. Thoughts that you would be better off or of hurting yourself in some way: not at all Total score: 0 Depression Screening Interpretation: Negative Depression Screening Done: Yes 83140 - PHQ-9 Billing: Yes Source: Developed by Drs. Nishant Hess, Maximo Azul and colleagues, with an educational kenneth from [employer]. Thrive Questionnaire Date Thrive assessed: 01/27/23 I am a: Patient What is your living situation today?: I have a steady place to live Within the past 12 months, did the food you bought not last and you didn't have the money to get more?: Never true Within the past 12 months, did you worry whether your food would run out before you got money to buy more?: Never true Do you have trouble paying for medicines?: No Do you have trouble getting transportation to medical appointments?: No Do you have trouble paying your heating and electricity bill?: No Do you have trouble taking care of your child, family member or friend?: No Do you have trouble with day-to-day activities such as bathing, preparing meals, shopping, managing finances, etc.?: No Are you currently unemployed and looking for a job?: No Are you interested in more education?: No Please select the resources that you would like help with: None Currently or been in a relationship where the following occur: no concerns reported AUDIT C Alcohol Use Questionnaire (AUDIT-C) 1. How often do you have a drink containing alcohol?: Never 3. How often do you have six or more drinks on one occasion?: Never Total Score: 0 Score Reviewed/Action Taken: Yes KRYSTINA-7 AMB Questionnaire KRYSTINA-7 Date KRYSTINA - 7 assessed: 01/27/23 Feeling nervous, anxious, or on edge: 0 = Not at all Not being able to stop or control worryin = Not at all Worrying too much about different things: 0 = Not at all Trouble relaxin = Not at all Being so restless that it is hard to sit still: 0 = Not at all Becoming easily annoyed or irritable: 0 = Not at all Feeling afraid as if something awful might happen: 0 = Not at all Total KRYSTINA-7 score (0-4 normal; 5-9 mild; 10-14 moderate; 15-21 severe): 0 Source: Developed by Elizabeth Reyna Kurt Kroenke and colleagues, with an educational kenneth from [employer]. Review of Systems Const Denies chills, Denies fatigue, Denies fever(s), Denies headache(s) and Denies malaise Eyes Denies blurry vision, Denies change in vision, Denies irritation and Denies itchy eyes ENT Denies dysphagia, Denies dizziness, Denies otalgia, Denies headache(s), Denies nasal congestion, Denies neck pain, Denies odynophagia, Denies sinus pain and Denies sore throat Card Denies chest pain, Denies rapid heart rate, Denies irregular heart rhythm, Reports palpitations (wakes up occasionally with her heart feeling like it is racing) and Denies dyspnea Resp Denies chest congestion, Denies cough, Denies dyspnea and Denies wheezing GI Denies abdominal pain, Denies bloating, Denies constipation, Denies dysphagia, Reports heartburn (occasionally, most when she eats the wrong stuffs ), Denies diarrhea, Denies nausea, Denies odynophagia and Denies vomiting Denies hematuria, Denies urinary frequency, Denies dysuria, Denies urinary incontinence and Denies urinary urgency Musc Details: right hip feels like it gets stuck occasionally - feels uncomfortable Denies back pain, Reports arthralgias (both wrists, especially on the left side - see HPI), Denies joint swelling, Denies muscle weakness and Denies neck pain Skin/Breast Denies breast pain, Denies breast mass, Denies change in pigmentation, Denies lesions, Denies rash and Denies unusual bruising Neuro Denies dizziness, Denies headache(s) and Denies paresthesias Psych Denies anxiety and Denies depression Endo Denies fatigue and Reports palpitations (wakes up occasionally with her heart feeling like it is racing) Rainer/Lymph Denies easy bruising Aller/Immun Denies itchy eyes and Denies wheezing Physical exam (Primary Care) Vital Signs: Last Vital Signs Pulse 71 01/27/23 08:51 BP 110/60 01/27/23 08:51 Pulse Ox 99 01/27/23 08:51 Oxygen Delivery Method Room Air 01/27/23 08:51 BMI result Body Mass Index 27.5 Tobacco/Smoking Status: Tobacco use Status Tobacco use date assessed 01/27/23 01/27/23 08:55 Patient Tobacco Use Status Never used Tobacco 01/27/23 08:55 PHQ-9: PHQ-9 Score PHQ-9: Total score 0 01/27/23 09:00 Depression Screening Interpretation: Negative Thrive Assessment: Date of Thrive Assessment Date Thrive assessed 01/27/23 01/27/23 08:55 Currently or been in a relationship where the following occur: no concerns reported Const General: no acute distress, alert and awake Orientation/consciousness: patient oriented x3 HENMT Head: Yes normocephalic and Yes atraumatic Ears: external ears normal, TM's normal bilaterally and EAC's normal General nose exam: No nasal discharge present Face and sinus: Yes normal facial exam and Yes sinuses nontender Teeth and gingiva: dentition normal Throat: Yes posterior oropharynx normal and Yes tonsils normal (no TP congestion) Eyes Eyelids: Yes eyelids normal Conjunctivae: conjunctivae normal Pupils: Equal, round and reactive pupils present EOM: EOMs intact bilaterally Neck Neck: Yes no lymphadenopathy and Yes supple Thyroid: Thyroid normal Resp Auscultation: clear to auscultation bilaterally, no rales and no wheezes Cardio Rate: regular rate Rhythm: regular rhythm Heart sounds: no murmurs GI Palpation (GI): Soft to palpation, nontender and No hepatosplenomegaly present Auscultation: normal bowel sounds General: Yes no CVA tenderness Back/Spine/Pelvis Back: no CVA tenderness Thoracic/Lumbar Spine: thoracic and lumbar spine normal to inspection Skin Lesions: no lesions Rashes: no rashes Neuro General: patient oriented x3, moves all extremities, no focal motor deficits and CN's II-XI intact bilaterally Cranial nerves: Yes Equal, round and reactive pupils present Cognition (Neuro): normal cognition Gait exam (Neuro): Normal gait present Extrem General: Yes no clubbing, cyanosis or edema Right upper extremity: wrist Details: normal to inspection, Tinel's negative and Phalen's negative; no tenderness Left upper extremity: wrist (no tenderness on exam) Assessment and Plan Assessment & Plan (1) Annual physical exam: Code(s): Z00.00 - Encounter for general adult medical examination without abnormal findings Plan: Check labs She is up-to-date with her annual obstetrics gyn exam and pap smear (2) Intermittent palpitations: Code(s): R00.2 - Palpitations Plan: Will send her for some labs and EKG for further evaluation but discussed that based on her symptoms, these are more likely due to anxiety (3) Anemia: Code(s): D64.9 - Anemia, unspecified Qualifiers: Anemia type: unspecified type Qualified Code(s): D64.9 - Anemia, unspecified Plan: (+) Hx of anemia requiring iron supplementation in the past Will recheck her CBC for follow up (4) Bilateral wrist pain: Code(s): M25.531 - Pain in right wrist; M25.532 - Pain in left wrist Plan: Advised that her wrist symptoms are more likely due to tendinitis Will send her for bilateral wrist x-rays for further evaluation (5) Discomfort of right hip: Code(s): M25.551 - Pain in right hip Plan: Will send her for right hip x-rays for further evaluation Hip exam today is normal Plan Follow up in 6 months Orders: Orders Complete Blood Count Auto Diff Today R00.2 - Palpitations, Z00.00 - Encounter for general adult medical examination without abnormal findings Lipid Panel Today E78.00 - Pure hypercholesterolemia, unspecified, R00.2 - Palpitations, Z00.00 - Encounter for general adult medical examination without abnormal findings Erythrocyte Sedimentation Rate Today M25.50 - Pain in unspecified joint C Reactive Protein Today M25.50 - Pain in unspecified joint Rheumatoid Factor Today M25.50 - Pain in unspecified joint ECG 12 lead EKG Today R00.2 - Palpitations Comprehensive [place]. Panel Fast Today R00.2 - Palpitations, Z00.00 - Encounter for general adult medical examination without abnormal findings TSH reflex Free T4 Today R00.2 - Palpitations, Z00.00 - Encounter for general adult medical examination without abnormal findings UA CC w/rflx Micro + Cult Today R30.0 - Dysuria, Z00.00 - Encounter for general adult medical examination without abnormal findings Vitamin D 25-OH Total Today E55.9 - Vitamin D deficiency, unspecified, Z00.00 - Encounter for general adult medical examination without abnormal findings GREG Reflex Titer and Pattern Today M25.50 - Pain in unspecified joint XR hip RT w PEL1V Today M25.551 - Pain in right hip XR hand wrist LT Today M25.531 - Pain in right wrist, M25.532 - Pain in left wrist XR hand wrist RT Today M25.531 - Pain in right wrist, M25.532 - Pain in left wrist Coding Level of Care Code New Pt Prev Care 18-39yr([id number] Diagnoses Annual physical exam Z00.00 Intermittent palpitations R00.2 Anemia, unspecified type D64.9 Anemia type: unspecified type Bilateral wrist pain M25.531; M25.532 Discomfort of right hip M25.551
== END 2023-01-27 09:44 | disposition home or self-care (01) ==
PROVIDERS: PCP Internal Medicine; Visit Provider Internal Medicine
DX: Z00.00 Encounter for general adult medical examination without abnormal findings (principal); R00.2 Palpitations; D64.9 Anemia, unspecified; M25.531 Pain in right wrist; M25.532 Pain in left wrist; M25.551 Pain in right hip
CPT/HCPCS: 99385

== ENCOUNTER 2023-01-27 09:49 | Outpatient (REF) | payer BC, MEDICAID, SELFPAY ==
--- NOTE | ~2023-01-27 | XR_ITS ---
EXAMINATION: XR HIP, RIGHT CLINICAL INFORMATION: Pain in right hip. COMPARISON: None available. TECHNIQUE: AP view of the pelvis as well as AP and frog lateral views of the right hip. FINDINGS: Mild joint space narrowing in the bilateral hips, right greater than left. Small soft tissue calcifications adjacent to the right acetabulum. Tiny punctate soft tissue calcification adjacent to the left acetabulum. XR/XR hip RT w PEL1V IMPRESSION: Mild degenerative changes in the right hip. Additional imaging with MRI should be considered for further evaluation if there is clinical concern for fracture or other underlying pathology as MRI is more sensitive for detection.
--- NOTE | ~2023-01-27 | XR_ITS ---
EXAMINATION: XR WRIST, BILATERAL CLINICAL INFORMATION: Bilateral wrist pain COMPARISON: Left wrist 01/12/2019 TECHNIQUE: Four views of the bilateral wrists. FINDINGS: LEFT HAND: The bone mineralization is normal. Curvilinear ossific/calcific focus along the radial aspect of the base of the left third digit proximal phalanx of indeterminate age and etiology. Radiopaque marker placed by the technologist to indicate the area of concern as indicated by the patient at the level of the left wrist. 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 Mild sclerosis and narrowing along the radiocarpal joint. RIGHT HAND: The bone mineralization is normal. 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 Mild sclerosis and narrowing along the radiocarpal joint. XR/XR hand wrist LT IMPRESSION: 1. Curvilinear ossific/calcific focus along the radial aspect of the base of the left third digit proximal phalanx of indeterminate age and etiology, possibly representing an avulsion fracture fragment or soft tissue calcification of indeterminate age versus an accessory ossicle. Correlation with clinical exam to determine significance recommended. 2. 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 Recommend follow-up imaging in 10-14 days if fracture is suspected. Additional imaging with MRI should be considered for further evaluation based on the level of concern.
--- NOTE | ~2023-01-27 | XR_ITS ---
EXAMINATION: XR WRIST, BILATERAL CLINICAL INFORMATION: Bilateral wrist pain COMPARISON: Left wrist 01/12/2019 TECHNIQUE: Four views of the bilateral wrists. FINDINGS: LEFT HAND: The bone mineralization is normal. Curvilinear ossific/calcific focus along the radial aspect of the base of the left third digit proximal phalanx of indeterminate age and etiology. Radiopaque marker placed by the technologist to indicate the area of concern as indicated by the patient at the level of the left wrist. 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 Mild sclerosis and narrowing along the radiocarpal joint. RIGHT HAND: The bone mineralization is normal. 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 Mild sclerosis and narrowing along the radiocarpal joint. XR/XR hand wrist RT IMPRESSION: 1. Curvilinear ossific/calcific focus along the radial aspect of the base of the left third digit proximal phalanx of indeterminate age and etiology, possibly representing an avulsion fracture fragment or soft tissue calcification of indeterminate age versus an accessory ossicle. Correlation with clinical exam to determine significance recommended. 2. 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 Recommend follow-up imaging in 10-14 days if fracture is suspected. Additional imaging with MRI should be considered for further evaluation based on the level of concern.
--- NOTE | 2023-01-27 09:54 | ECG_ITS ---
Test Reason : RITA.2 Blood Pressure : / mmHG Vent. Rate : 069 BPM Atrial Rate : 069 BPM P-R Int : 116 ms QRS Dur : 100 ms QT Int : 414 ms P-R-T Axes : 056 069 008 degrees QTc Int : 443 ms Sinus rhythm with marked sinus arrhythmia Incomplete right bundle branch block T-wave inversion in Anterior leads Abnormal ECG No previous ECGs available Referred By: Pato Day Electronically Signed By:JAKOB ISLAS MD
[2023-01-27 10:00] LABS: MANUAL DIFF FLAG NO
[2023-01-27 10:44] LABS: Appearance Urine Clear; Color Urine Yellow; Glucose Urine UA Negative (Negative); Leukocyte Esterase Urine Small (1+) (Negative); Nitrite Urine Negative (Negative); Specific Gravity - Urine >= 1.030 (1.005-1.025); UMIC TRIGGER UACC YES; Urine Blood Negative (Negative); Urine Ketones Negative (Negative); Urine Protein Negative (Neg-Trace)
[2023-01-27 10:47] LABS: Bacteria Urine 2+ (None Seen); Hyaline Casts Urine 0-2 /LPF (0-2); RBC Urine 0-2 /HPF (0-2); UACC Culture Trigger YES
[2023-01-27 10:54] LABS: Basophils Percent Auto 0.6 % (0-2); Eosinophils Absolute Auto 0.1 X10*3/uL (0.0-0.4); Eosinophils Percent Auto 0.7 % (0-4); Hemoglobin 13.3 g/dl (12.0-16.0); Imm Gran Abs Auto 0.02 X10*3/uL (0.00-0.03); Imm Gran Pct Auto 0.3 % (0.0-0.4); Lymphocytes Absolute Auto 1.9 X10*3/uL (1.2-4.9); Lymphocytes Percent Auto 26.4 % (20-40); Mean Corpuscular HGB Conc 30.9 g/dl (31.0-35.0); Mean Corpuscular Hemoglobin 26.5 pg (27.0-33.0); Mean Corpuscular Volume 85.8 fL (80.0-98.0); Monocytes Absolute Auto 0.5 X10*3/uL (0.1-1.2); Monocytes Percent Auto 7.1 % (2-11); Neutrophils Absolute Auto 4.6 x10*3/uL (2.0-8.3); Neutrophils Percent Auto 64.9 % (45-73); Platelet Count 211 X10*3/uL (160-400); Red Blood Count 5.01 X10*6/uL (4.20-5.50); White Blood Count 7.1 X10*3/uL (4.8-10.8)
[2023-01-27 11:33] LABS: Erythrocyte Sedimentation Rate 7 MM/HR (0-20)
[2023-01-27 11:34] LABS: Alanine Aminotransferase 20 U/L (0-31); Albumin Level 4.4 g/dL (3.5-5.0); Alkaline Phosphatase 52 U/L (39-117); Anion Gap 11 (12-20); Aspartate Amino Transferase 20 U/L (5-31); Bilirubin Total 0.5 mg/dL (0.0-1.0); Blood Urea Nitrogen 12 mg/dL (9-16); C Reactive Protein 0.21 mg/dL (< or = 0.50); Calcium 9.7 mg/dL (8.4-10.2); Carbon Dioxide 23 mmol/L (22-29); Chloride 108 mmol/L (96-108); Cholesterol 199 mg/dL (<200); Estimated Glomerular Filt Rate > 60; Glucose Fasting 88 mg/dL (60-99); HDL Cholesterol 51 mg/dL (>40); LDL Cholesterol Calculated 133 mg/dL (<100); Potassium 3.8 mmol/L (3.3-5.1); Rheumatoid Factor < 13.0 IU/mL (<15.0); Sodium 138 mmol/L (135-145); Total Protein 7.9 g/dL (6.5-8.0); Triglycerides 76 mg/dL (<150)
[2023-01-27 11:48] LABS: TSH reflex Free T4 2.02 uIU/mL (0.32-4.0); Vitamin D 25-OH Total 59.3 ng/mL (>30)
[2023-01-31 12:13] LABS: Anti Nuclear Antibody Screen NEGATIVE (NEGATIVE)
== END 2023-01-27 09:50 | disposition home or self-care (01) ==
LOC: HO.XRAY 09:49
PROVIDERS: PCP Internal Medicine; Visit Provider Internal Medicine
DX: M25.532 Pain in left wrist (principal); M25.531 Pain in right wrist; M25.551 Pain in right hip; R00.2 Palpitations; E55.9 Vitamin D deficiency, unspecified; E78.00 Pure hypercholesterolemia, unspecified; R30.0 Dysuria; Z00.00 Encounter for general adult medical examination without abnormal findings
CPT/HCPCS: 36415; 73110; 73130; 73502; 80053; 80061; 81001; 82306; 84443; 85025; 85652; 86038; 86140; 86431; 87086; 87147; 93005

== ENCOUNTER 2023-02-15 12:51 | Outpatient (AMB) | payer BC, MEDICAID, SELFPAY ==
--- NOTE | 2023-02-15 13:02 | MHC.OFFVIS ---
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 States pain comes iwth lifting or over use with her left hand being the worse. Occasional swelling in bilateral hands. States being seen by PCP who ordered xrays and referred her to orthopedics. Denies injury. No other tx. 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 She also complains of having a hard bump on her left wrist for the last several months. She complains of pain in both wrists with daily activity, worse with heavy lifting or overuse. 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 She says she has worse wrist pain when performing activities such as push-ups. She likes to workout at the gym. She says she occasionally has swelling in her hands She denies any falls or known injury. She says she may have injured her wrist with heavy lifting in the past, but is unsure. She denies any prior treatment. 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, 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 Sexual orientation: Straight/Heterosexual Gender identity: Female Cognitive needs: No Hearing needs: No Vision needs: No Female Reproductive History Menstrual Age of Menarche: 12 Review of Systems Const All systems reviewed & are unremarkable except as noted in HPI and below Physical Exam Vital Signs: BMI result Body Mass Index 27.4 Const General: cooperative, healthy appearing and no acute distress Orientation/consciousness: patient oriented x3 HEENT Head: Yes normocephalic and Yes atraumatic Eyes EOM: EOMs intact bilaterally Resp Effort & Inspection: normal respiratory effort and able to speak in complete sentences Cardio Jugular venous distension: no JVD Skin General skin exam: turgor normal Rashes: no rashes Neuro General: patient oriented x3 Extrem Other: Evaluation of Bilateral Upper Extremity: The patient is alert, oriented, and in no acute distress Neuro: Median, Ulnar, Radial nerves motor and sensory intact and sensation is normal to the tips of all digits Vascular: Cap refill brisk ROM: She can make a tight fist with good strength and no pain. She can extend all her digits with good strength and no pain No locking or catching Full & symmetrical wrist pronosupination bilaterally Full & symmetrical wrist flexion and extension bilaterally No wrist her hand swelling seen today. No tenderness about the wrist bilaterally. Skin: No lacerations or abrasions. General: No Ecchymosis. No Erythema or evidence of infection. She has some dorsal prominence of the left distal ulna Some laxity of the left DRUJ, very mild discomfort when reducing the DRUJ. No laxity of the right DRUJ Radiographs: 3 views of the bilateral wrists from 01/27/23 were reviewed by me today in clinic. They show no fractures or dislocations. In regards to her left wrist, she has an old fracture at the radial base of the left middle finger proximal phalanx. The ulna does not appear displaced radiographically. She has some increased inclination of the distal radius, bilaterally. She appears to have a reasonable DRUJ bilaterally. If this is Madelung's it is certainly very mild.. Psych Appearance: grossly normal Affect: normal affect Attitude: cooperative Assessment & Plan Assessment & Plan (1) DRUJ (distal radioulnar joint) instability, post-traumatic: Code(s): M25.339 - Other instability, unspecified wrist Plan Assessment & Plan: 1. Left DRUJ instability Mildly symptomatic with some dorsal prominence of the distal ulna with pronation Full ROM at DRUJ & radial carpal joint She does not recall any particular fall or injury, but believes this occurred within the last year 2. Mild generalized bilateral wrist pain with activities, mildly increased radial inclination bilaterally Other than as noted above on not seeing any significant deformities. I educated her about this condition I ordered an MRI to assess the ligamentous structures of her left wrist in more detail I discussed possible operative treatment options I recommend she continue activity as tolerated, she should limit or avoid any heavy lifting or twisting activities with her left hand that might be painful. She will follow up when completed for MRI review. This should be a 30 minute appointment Scribed for Chelsea Reilly MD by Nilton Yin, medical physics researcher, on 02/15/23 at 2:00 PM, EST. Orders: Orders MR wrist LT wo/w con Today M25.339 - Other instability, unspecified wrist Coding Level of Care Code New Pt Level 4 (89401) Diagnoses DRUJ (distal radioulnar joint) instability, post-traumatic M25.339
[2023-02-15 13:11] VITALS: BMI 27.4
== END 2023-02-15 14:08 | disposition home or self-care (01) ==
PROVIDERS: PCP Internal Medicine; Visit Provider Orthopaedic Surgery
DX: M25.332 Other instability, left wrist (principal)
CPT/HCPCS: 99204

== ENCOUNTER → 2023-02-15 12:51 | Outpatient (BNVA) | payer BC, MEDICAID, SELFPAY | PROVIDERS: PCP Internal Medicine; Visit Provider Orthopaedic Surgery ==

== ENCOUNTER 2023-02-28 08:32 | Outpatient (AMB) | payer BC, MEDICAID, SELFPAY ==
--- NOTE | 2023-02-28 08:34 | MHC.OFFVIS ---
Intake Vital Signs 02/28/23 08:35 Height 5 ft 2 in Weight 150 lb BMI 27.4 Intake Visit Reasons: New prob-Bilateral primary osteoarthritis of hip Intake Note: Caroline is a 32 year old female who presents today as a new patient with complaints of bilateral hip pain. Patient reports that the right hip is more painful than the left. She has increased pain with exercise, walking in heels, pivoting and standing long periods of time.Pain is felt on the lateral aspect of the hip. Allergies No Known Allergies [No Known Allergies*] Allergy (Verified 02/28/23 08:36) HPI New prob-Bilateral primary osteoarthritis of hip HPI Details Caroline is a 32 year old woman who presents with complaints of bilateral hip pain, R>L. She complains of pain with daily activity, worse with prolonged walking. She was referred here by her PCP. She localizes her pain primarily to the lateral aspect of her hips. Her pain has been present for some time, but worsened after she gave last year. She reports after giving she felt her hips would get stuck and she would have to move differently to get it to release. She says this now happens only occasionally, perhaps once a month. 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, 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 Sexual orientation: Straight/Heterosexual Gender identity: Female Cognitive needs: No Hearing needs: No Vision needs: No Female Reproductive History Menstrual Age of Menarche: 12 Review of Systems Const All systems reviewed & are unremarkable except as noted in HPI and below Physical Exam Vital Signs: BMI result Body Mass Index 27.4 Const General: no acute distress, alert and awake Orientation/consciousness: patient oriented x3 HEENT Head: Yes normocephalic and Yes atraumatic Eyes EOM: EOMs intact bilaterally Resp Effort & Inspection: normal respiratory effort and able to speak in complete sentences Cardio Jugular venous distension: no JVD Skin General skin exam: turgor normal Rashes: no rashes Neuro General: patient oriented x3 Extrem Other: Mild ttp right greater troch, otherwise unremarkable exam Psych Appearance: grossly normal Affect: normal affect Attitude: cooperative Results Reviewed Results Reviewed: I personally reviewed relevant radiographs Mild joint space narrowing in the bilateral hips, right greater than left. Small soft tissue calcifications adjacent to the right acetabulum. Tiny punctate soft tissue calcification adjacent to the left acetabulum Assessment & Plan Assessment & Plan (1) Bursitis of right hip: Code(s): M70.71 - Other bursitis of hip, right hip Plan: Tenderness to palpation over the right greater trochanter. Essentially she is here for a x-ray review. She has these soft tissue calcifications adjacent to the acetabulum bilaterally but these do not appear to be causing symptoms and they are not concerning. The degenerative changes in the hip are very mild but I described if she has worsening symptoms she can return to see me. At this time however her symptoms mostly related to her right greater trochanter. There are mild and if they worsen she can return for injections or physical therapy. I do recommend activity for strengthening the hip girdle. (2) Bursitis of left hip: Code(s): M70.72 - Other bursitis of hip, left hip Plan Scribed for Dameon Elizondo MD by Nilton Yin, medical claims processor, on 02/28/23 at 8:50 AM, EST. Coding Level of Care Code New Pt Level 3 (76459) Diagnoses Bursitis of right hip M70.71 Bursitis of left hip M70.72
[2023-02-28 08:35] VITALS: BMI 27.4
== END 2023-02-28 09:04 | disposition home or self-care (01) ==
PROVIDERS: PCP Internal Medicine; Visit Provider Orthopaedic Surgery
DX: M70.71 Other bursitis of hip, right hip (principal); M70.72 Other bursitis of hip, left hip
CPT/HCPCS: 99203; 99213

== ENCOUNTER → 2023-02-28 08:32 | Outpatient (BNVA) | payer BC, MEDICAID, SELFPAY | PROVIDERS: PCP Internal Medicine; Visit Provider Orthopaedic Surgery ==

== ENCOUNTER 2023-04-07 13:21 | Outpatient (REF) | payer BC, MEDICAID, SELFPAY ==
--- NOTE | ~2023-04-07 | FL_ITS ---
Left wrist arthrogram Indications: Left wrist pain. Intra-articular gadolinium injection is needed prior to MRI. Procedure: Risks and benefits and possible complications were discussed with the patient and the consent form was signed. The patient was placed prone on the fluoroscopy table. The left wrist was prepped and draped in normal sterile fashion. 1% buffered lidocaine was used for anesthesia. A 25-gauge hypodermic needle was used to access the radiocarpal joint. Intra-articular position of the needle within the radiocarpal joint was verified using 0.5 cc of Omnipaque 300. A total of 2 mL of gadolinium/saline (1:200) contrast mixture was then injected into the radiocarpal joint. The needle was then removed and a Band-Aid was applied to the injection site. The patient tolerated the procedure well and was sent for to MRI. There were no immediate complications. FL/FL arthrogram wrist LT Impression: Fluoroscopic right wrist arthrogram The procedure was performed by Félix Andrade PA-C, and directly supervised by Dr. Rodriguez.
--- NOTE | ~2023-04-07 | MR_ITS ---
EXAMINATION: MR WRIST ARTHROGRAM, LEFT CLINICAL INFORMATION: Evaluate structures of DRUJ. COMPARISON: X-ray 01/27/2023. TECHNIQUE: MRI of the wrist without contrast is performed in a 1.5 Babr high-field scanner. FINDINGS: There is motion artifact degrading some of the sequences, limiting evaluation. BONE/JOINTS: As seen on the prior x-ray, is radial inclination of the distal surface of the radius. No acute marrow signal abnormality in the distal radius. Mild radiocarpal joint space loss. Mild degenerative signal in the base of the first proximal phalanx. The small curvilinear calcific/ossific focus along the radial aspect of the third proximal phalanx base, seen on the prior x-ray, is not clearly evident on MRI. No acute marrow edema is seen in the underlying bone. There is mild dorsal positioning of the distal ulna with respect to the radius at the distal radioulnar joint. There is strandy signal changes within the wrist joint space, which may reflect synovitis. MUSCLE/TENDONS: There is fluid signal associated with the extensor tendons, including the extensor carpi radialis longus and brevis tendons, likely related to the arthrogram. The tendons otherwise appear intact. LIGAMENTS: Motion artifact on the sequences, limiting evaluation. Motion artifact limiting evaluation of the TFCC. There is mild T2 signal within the triangular fibrocartilage, the dorsal radioulnar ligaments, suggesting degenerative changes. No gross measurable defect/full-thickness tear is seen. As noted above, there is dorsal positioning of the distal ulna with respect to the radius, of uncertain etiology/significance, could be related to positioning versus ligament tear. There is limited evaluation of the volar radioulnar ligament, with oblique orientation. In particular, the ulnar attachments of the ligament are not clearly visualized, and tearing cannot be excluded. There is mild T2 signal/fluid in the distal radioulnar joint. No definitive contrast is identified in the distal radioulnar joint, to suggest a full-thickness triangular fibrocartilage tear. The ulnar attachments of the TFCC are not well seen, suboptimally evaluated, and tearing cannot be excluded. Degenerative appearing signal in the scapholunate ligament. No definitive tear is identified. The lunotriquetral ligament appears intact. MEDIAN NERVE: Within normal limits. MR/MR wrist LT w con IMPRESSION: Motion artifact limiting evaluation. 1. 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 2. Motion artifact limiting evaluation of the TFCC. There is dorsal positioning of the distal radius with respect to the ulna, which could be related to positioning versus abnormality of the TFCC. Signal changes presumably degenerative, in the triangular fibrocartilage and the dorsal radioulnar ligament. No measurable defect or retraction is seen. Limited evaluation of the volar radioulnar ligament, detailed above. Tearing of the ulnar aspect of the ligament and the ulnar attachments of the TFCC cannot be excluded. 3. The small calcific/ossific focus along the radial aspect of the third proximal phalanx base, seen on the prior x-ray, is not clearly evident on MRI. 4. Additional findings and details as above.
[2023-04-07] MEDS: gadobutroL 2 ML VIAL IVPUSH (15:23)
[2023-04-14] MEDS: gadobutroL 2 ML VIAL IVPUSH (15:19)
== END 2023-04-07 13:22 | disposition home or self-care (01) ==
LOC: HO.XRAY 13:21
PROVIDERS: PCP Internal Medicine; Visit Provider Orthopaedic Surgery
DX: M25.332 Other instability, left wrist (principal); M25.532 Pain in left wrist
CPT/HCPCS: 20605; 25246; 73115; 73222; A9585

== ENCOUNTER → 2023-04-07 13:34 | Outpatient (BNV) | payer BC, MEDICAID, SELFPAY | PROVIDERS: PCP Internal Medicine; Visit Provider Radiology Diagnostic Radiology | DX: M25.532 Pain in left wrist (principal) | CPT/HCPCS: 20605; 73115 ==

== ENCOUNTER 2023-09-02 09:52 | Outpatient (AMB) | payer BC, MEDICAID, SELFPAY ==
[2023-09-02 10:31] VITALS: BP 118/62; BMI 28.2
--- NOTE | 2023-09-02 10:31 | A.OFFVIS_ITS ---
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 She had use condoms and patch and control pills in the past. Last year she decided to discontinue the pills and patch and go to being aware of her cycles and using condoms and she is happy with this method so far she is getting used to figuring out when she is ovulating and she is careful before and during that and after as well. She has not worried about STIs but she wants screening tests and will go for lab work to. She had 1 time this year when she felt she might be getting an outbreak and she used the Valtrex and it went away she thinks she might have some more tablets left but she had like a refill on the script. She works and she has a 2-year-old and a 6-year-old and she is doing exercises by cardio and planks and in good shape and is feeling good this year. 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, 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 Sexual orientation: Straight/Heterosexual Gender identity: Female Cognitive needs: No Hearing needs: No Vision needs: No Female Reproductive History Menstrual Age of Menarche: 12 Duration of menses: 3-5 days Date of last menstrual period: 08/25/23 control method: condoms Total pregnancies: 3 Full term: 2 Date of last pap smear: 09/19/20 (neg,previous pap 2018,WNL) History of abnormal pap smear: No Physical Exam Vital Signs: Last Vital Signs BP 118/62 09/02/23 10:31 BMI result Body Mass Index 28.2 Const General: healthy appearing, comfortable, no acute distress, well developed and alert Nutritional Appearance: average body habitus Orientation/consciousness: patient oriented x3 Limitations: no limitations HEENT Head: Yes normocephalic Neck Neck: Yes normal visual inspection Chest Chest palpation & inspection: normal inspection of the chest Breast/axilla inspection: normal inspection of the breasts and normal inspection of the axillae Breast/axilla palpation: normal palpation of the breasts and normal palpation of the axillae Resp Effort & Inspection: normal respiratory effort GI Inspection: Yes normal to inspection, No Abdominal wall edema and No distended Palpation (GI): Soft to palpation and nontender Other: Vagina pink and moist cervix multiparous pink moist with clear off-white tinged mucus cervix deep in pelvis posterior mobile nontender uterus small anteverted and anteflexed mobile nontender adnexa nontender very good tone with Kegel. General: Yes bladder normal to palpation External Female Exam: normal external appearance and normal appearance of the urethra Speculum Exam - Vagina: normal appearance of the vagina, normal palpation and normal vaginal discharge Speculum Exam - Cervix: normal appearance of the cervix, normal palpation and nontender Bimanual exam- vagina & uterus: normal bimanual exam, normal palpation, uterine size normal, bladder normal to palpation, consistency normal, normal palpation, uterine mobility normal, uterine shape normal, No Cervical tenderness present, non-tender and no cervical motion tenderness Bimanual Exam- Adnexa, other: normal adnexae, no masses, normal and No adnexal tenderness Neuro General: patient oriented x3 Results Reviewed Results Reviewed: Name: Caroline Gama Age/Sex: 30/F Attending: Talita Herrera CNM : 1990 Submitted by: Talita Herrera CNM Copies to: MR #: [id number] Status: DEP REF Collected: 09/18/20 Location: .LAB Received: 09/19/20 Interpretation Satisfactory for evaluation. Negative for intraepithelial lesion or malignancy. Clinical Information LMP: Previous PAP test: 2018, WNL Material Received ThinPrep Cervical Electronically Signed By: Ainsley Talavera 09/23/20 [id number] The Pap Test is a screening procedure with the inherent possibility of both false negative and false positive results. Results should be interpreted in the context of historic and current clinical findings. Reliability of the Pap Test is enhanced by performing the test on a regular repetitive basis. Patient: Mingo Page 1 of 1 debra: Mingo CaseCaroline Age/Sex: 32/F : 1990 Unit#: [id number] Attend Dr: Talita Herrera CNM Re11/01/22 Status: [facility] REF Location: [facility] Disch: SPEC : [id number] PAM: 11/01/22 STATUS: COMP REQ : [id number] RECD: 11/01/[address] [facility] [address]: Talita Herrera COMP: 11/05/22 ENTERED: 11/01/22-[address]: Pato Day MD ORDERED: HSV Cult rflx Test Result Flag Reference HSV Cult rflx SEE NOTE A HERPES SIMPLEX VIRUS CULTURE W/RFL TO TYPING Micro Number: [id number] Test Status: Final Specimen Source: Not given Specimen Quality: Adequate HSV Culture: Isolated HSV TYPE 2: Not Isolated HSV TYPE 1: Isolated THIS TEST WAS PERFORMED AT: [facility] [address] [place] [id number] GIANNI HOOKER MD Assessment & Plan Assessment & Plan (1) Cervical cancer screening: Comment: 09/18/20 pap= neg Code(s): Z12.4 - Encounter for screening for malignant neoplasm of cervix Category: Medical (2) Well woman exam with routine gynecological exam: Code(s): Z01.419 - Encounter for gynecological examination (general) (routine) without abnormal findings Category: Medical (3) Encounter for screening examination for sexually transmitted disease: Code(s): Z11.3 - Encounter for screening for infections with a predominantly sexual mode of transmission Category: Medical (4) Uses fertility awareness method as primary control method: Code(s): Z78.9 - Other specified health status Category: Social Hx Plan -----Discussed in this visit the following: healthy balanced diet, regular and consistent exercise, getting recommended health screens, doing the best she can for her particular health concerns, kegel exercises, pap smear screening and followup recommendations, mammography screening and SBE, normal changes in cycles in her life stage--- . See HPI for details of what we discussed in history script sent for Valtrex so she can have a for p.r.n. use reviewed use of condoms whenever there was a question of approaching or having just ovulated. Testing ordered for STIs that she can go get done today if she wishes. We will see her next year her Pap was done today and if this 1 is negative her next would be in 5 years. Orders: Orders Hepatitis B Surface Antigen Today Z01.419 - Encounter for gynecological examination (general) (routine) without abnormal findings, Z11.3 - Encounter for screening for infections with a predominantly sexual mode of transmission, Z12.4 - Encounter for screening for malignant neoplasm of cervix, Z78.9 - Other specified health status Hepatitis C Antibody Today Z01.419 - Encounter for gynecological examination (general) (routine) without abnormal findings, Z11.3 - Encounter for screening for infections with a predominantly sexual mode of transmission, Z12.4 - Encounter for screening for malignant neoplasm of cervix, Z78.9 - Other specified health status Syphilis Screen Today Z01.419 - Encounter for gynecological examination (general) (routine) without abnormal findings, Z11.3 - Encounter for screening for infections with a predominantly sexual mode of transmission, Z12.4 - Encounter for screening for malignant neoplasm of cervix, Z78.9 - Other specified health status HIV Ab/Ag Today Z01.419 - Encounter for gynecological examination (general) (routine) without abnormal findings, Z11.3 - Encounter for screening for infections with a predominantly sexual mode of transmission, Z12.4 - Encounter for screening for malignant neoplasm of cervix, Z78.9 - Other specified health status Medications: New valacyclovir One tablet 3-5 days as needed for outbreaks 1,000 mg PO DAILY 30 tabs 0RF Coding Level of Care Code Est Pt Level 3 (31840) Est Pt Prev Care 18-39y(08826) Diagnoses Cervical cancer screening Z12.4 Well woman exam with routine gynecological exam Z01.419 Encounter for screening examination for sexually transmitted disease Z11.3 Uses fertility awareness method as primary control method Z78.9
== END 2023-09-02 11:09 | disposition home or self-care (01) ==
LOC: HO.HWSM 09:53
PROVIDERS: PCP Internal Medicine; Visit Provider Advanced Practice Midwife
DX: Z01.419 Encounter for gynecological examination (general) (routine) without abnormal findings (principal); Z78.9 Other specified health status
CPT/HCPCS: 99395

== ENCOUNTER 2023-09-02 09:52 | Outpatient (REF) | payer BC, MEDICAID, SELFPAY ==
[2023-09-02 12:23] LABS: HBsAGNum1 0.36 S/CO (0.00-0.99); HIV AB/AG Nonreactive (Nonreactive); HIV Num 1 0.07 S/CO (0.00-0.99); Hepatitis B Surface Antigen Negative (Negative); ~HepC Num1 0.18 S/CO (0.00-0.79); ~Hepatitis C Antibody Nonreactive (Nonreactive)
[2023-09-02 12:24] LABS: Syphilis Screen Nonreactive (Nonreactive)
[2023-09-02 19:13] LABS: Bacterial Vaginosis PCR NEGATIVE (Negative); Candida Group PCR NOT DETECTED (Not Detect); Candida glab krusei PCR NOT DETECTED (Not Detect); Trichomonas vaginalis PCR NOT DETECTED (Not Detect)
[2023-09-02 19:32] LABS: CT PCR NOT DETECTED (Not Detect.); NG PCR NOT DETECTED (Not Detect.)
[2023-09-09 00:39] LABS: HPV mRNA E6/E7 rflx Not Detected (Not Detected)
== END 2023-09-02 09:53 | disposition home or self-care (01) ==
LOC: HO.LAB 09:52
PROVIDERS: PCP Internal Medicine; Visit Provider Advanced Practice Midwife
DX: Z01.419 Encounter for gynecological examination (general) (routine) without abnormal findings (principal); Z20.2 Contact with and (suspected) exposure to infections with a predominantly sexual mode of transmission; Z11.3 Encounter for screening for infections with a predominantly sexual mode of transmission; Z78.9 Other specified health status
CPT/HCPCS: 0352U; 0353U; 36415; 86780; 86803; 87340; 87389; 87624; 88142

== ENCOUNTER 2023-12-07 10:17 | Outpatient (AMB) | payer BC, MEDICAID, SELFPAY ==
--- NOTE | 2023-12-07 10:21 | A.OFFVIS_ITS ---
Vital Signs 12/07/23 10:21 Weight 158 lb Intake Visit Reasons: Control Consult Information Interpreted: clinical only Toxicology Teacher: Toxicology Teacher Present Allergies No Known Allergies [No Known Allergies*] Allergy (Verified 12/07/23 10:27) Medication List - Last Reconciled 12/07/23 by Talita Herrera CNM valacyclovir 1,000 mg PO DAILY Is last menstrual period known: Yes Last menstrual period: 12/13/23 Do you need a note to return to daycare/school/sports/work: No HPI HPI Control Consult: Details: Patient is here because she wants to get back on control pills she tracks her. In her last period was November 11 and it lasted till the and she thinks she is going to get her period tomorrow she has already started spotting. She does get acne before her. 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 She is nonsmoker she does not have migraines she knows how to take pills and she does not have any quest ions about them she did experience some vaginal dryness towards the end of being on them for about 4 years but that was about it and she will keep an eye on it. She has an appointment with her primary care provider in January and she is going to be getting her fasting labs done before that visit so if she keeps that appointment and her blood pressure is fine she does not need to be seen in 3 mon ths as she is an experienced pill use has not had any difficulty in the past I am reviewing the danger signs of control pills and what she should do if she experiences any of them and we will see her for her annual exam next year her last Pap smear in August was completely negative with negative HPV. 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, 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 Sexual orientation: Straight/Heterosexual Gender identity: Female Cognitive needs: No Hearing needs: No Vision needs: No Female Reproductive History Menstrual Age of Menarche: 12 Duration of menses: 3-5 days Date of last menstrual period: 12/13/23 control method: none Total pregnancies: 3 Full term: 2 Date of last pap smear: 09/05/23 (negative) Results Reviewed Results Reviewed: Name: Caroline Gama Age/Sex: 33/F Attending: Talita Herrera CNM : 1990 Submitted by: Talita Herrera CNM Copies to: Pato Day MD MR #: [id number] Status: DEP REF Collected: 09/02/23 Location: .LAB Received: 09/05/23 Interpretation Satisfactory for evaluation. No endocervical cells seen. Obscuring inflammation. Negative for intraepithelial lesion or malignancy. HPV mRNA E6/E7: NOT DETECTED This assay detects E6/E7 viral messenger RNA (mRNA) from 14 high-risk HPV types (16, 18, 31, 33, 35, 39, 45, 51, 52, 56, 58, 59, 66, 68) HPV testing performed by [facility], [place], [place]. See reference laboratory portion of the EMR for entire report. Clinical Information LMP: 08/25/2023 Previous PAP test: 2020, WNL Material Received ThinPrep-Cervical Copies To Pato Day MD [facility] [place] [place] [id number] TarrantTalita Arce CNKane [address] [facility] [address] [place] [address] Electronically Signed By: Ainsley Talavera 09/25/23 1546 The Pap Test is a screening procedure with the inherent possibility of both fal se negative and false positive results. Results should be Patient: Caroline Gama Age/Sex: 33/F MR#: [id number] Page 1 of 2 Assessment & Plan Assessment & Plan (1) Counseling for control, oral contraceptives: Code(s): Z30.09 - Encounter for other general counseling and advice on contraception Category: Medical (2) Counseling for initiation of control method: Code(s): Z30.09 - Encounter for other general counseling and advice on contraception Category: Medical Plan Patient is here because she wants to get back on control pills she tracks her. In her last period was November 11 and it lasted till the and she thinks she is going to get her period tomorrow she has already started spotting. She does get acne before her. 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 She is nonsmoker she does not have migraines she knows how to take pills and she does not have any questions about them she did experience some vaginal dryness towards the end of being on them for about 4 years but that was about it and she will keep an eye on it. She has an appointment with her primary care provider in January and she is going to be getting her fasting labs done before that visit so if she keeps that appointment and her blood pressure is fine she does not need to be seen in 3 months as she is an experienced pill use has not had any difficulty in the past I am reviewing the danger signs of control pills and what she should do if she experiences any of them and we will see her for her annual exam next year her last Pap smear in August was completely negative with negative HPV. She gets rare outbreaks of the HSV when she feels symptoms of something coming on she takes Valtrex for 1 or 2 days and it preempt it. Medications: Refilled desog-e.estradiol/e.estradiol 0.15-0.02 mgx21 /0.01 mg x 5 (Kariva (28)) 1 tab PO DAILY 84 tabs 4RF Coding Level of Care Code Est Pt Level 3 (19331) Diagnoses Counseling for control, oral contraceptives Z30. Counseling for initiation of control method Z
== END 2023-12-07 11:07 | disposition home or self-care (01) ==
PROVIDERS: PCP Internal Medicine; Visit Provider Advanced Practice Midwife
DX: Z30.09 Encounter for other general counseling and advice on contraception (principal)
CPT/HCPCS: 99213

== ENCOUNTER → 2023-12-07 10:17 | Outpatient (BNVA) | payer BC, MEDICAID, SELFPAY | PROVIDERS: PCP Internal Medicine; Visit Provider Advanced Practice Midwife ==

== ENCOUNTER 2024-01-28 07:17 | Outpatient (REF) | payer BC, SELFPAY ==
[2024-01-28 07:29] LABS: MANUAL DIFF FLAG NO
[2024-01-28 07:39] LABS: Basophils Percent Auto 0.5 % (0-2); Eosinophils Absolute Auto 0.1 X10*3/uL (0.0-0.4); Eosinophils Percent Auto 1.4 % (0-4); Hematocrit 37.6 % (37.0-47.0); Imm Gran Abs Auto 0.02 X10*3/uL (0.00-0.03); Imm Gran Pct Auto 0.4 % (0.0-0.4); Lymphocytes Absolute Auto 1.5 X10*3/uL (1.2-4.9); Lymphocytes Percent Auto 26.8 % (20-40); Mean Corpuscular HGB Conc 31.9 g/dl (31.0-35.0); Mean Corpuscular Hemoglobin 25.7 pg (27.0-33.0); Mean Corpuscular Volume 80.5 fL (80.0-98.0); Mean Platelet Volume 12.3 fL (9.4-12.3); Monocytes Absolute Auto 0.5 X10*3/uL (0.1-1.2); Monocytes Percent Auto 7.9 % (2-11); Neutrophils Absolute Auto 3.6 x10*3/uL (2.0-8.3); Platelet Count 235 X10*3/uL (160-400); Red Blood Count 4.67 X10*6/uL (4.20-5.50); White Blood Count 5.7 X10*3/uL (4.8-10.8)
[2024-01-28 07:48] LABS: Appearance Urine Clear; Color Urine Yellow; Glucose Urine UA Negative (Negative); Leukocyte Esterase Urine Moderate (2+) (Negative); Nitrite Urine Negative (Negative); PH 6.5 (5.0-9.0); UMIC TRIGGER UACC YES; Urine Blood Negative (Negative); Urine Ketones Negative (Negative); Urine Protein Negative (Neg-Trace)
[2024-01-28 08:19] LABS: Alanine Aminotransferase 16 U/L (0-31); Albumin Level 4.1 g/dL (3.5-5.0); Alkaline Phosphatase 79 U/L (39-117); Anion Gap 12 (12-20); Aspartate Amino Transferase 20 U/L (5-31); Bilirubin Total 0.6 mg/dL (0.0-1.0); Blood Urea Nitrogen 15 mg/dL (9-16); Carbon Dioxide 21 mmol/L (22-29); Chloride 108 mmol/L (96-108); Cholesterol 174 mg/dL (<200); Estimated Glomerular Filt Rate > 60; Glucose Fasting 86 mg/dL (60-99); HDL Cholesterol 43 mg/dL (>40); LDL Cholesterol Calculated 116 mg/dL (<100); Potassium 3.9 mmol/L (3.3-5.1); Sodium 137 mmol/L (135-145); Total Protein 7.2 g/dL (6.5-8.0); Triglycerides 75 mg/dL (<150)
[2024-01-28 08:30] LABS: TSH reflex Free T4 3.35 uIU/mL (0.32-4.0); Vitamin D 25-OH Total 37.8 ng/mL (>30)
[2024-01-28 08:56] LABS: Bacteria Urine 1+ (None Seen); Hyaline Casts Urine 0-2 /LPF (0-2); RBC Urine 0-2 /HPF (0-2); UACC Culture Trigger YES
== END 2024-01-28 07:18 | disposition home or self-care (01) ==
LOC: HO.LAB 07:17
PROVIDERS: PCP Internal Medicine; Visit Provider Internal Medicine
DX: Z00.00 Encounter for general adult medical examination without abnormal findings (principal); E78.00 Pure hypercholesterolemia, unspecified; E55.9 Vitamin D deficiency, unspecified; D64.9 Anemia, unspecified; R30.0 Dysuria
CPT/HCPCS: 36415; 80053; 80061; 81001; 82306; 84443; 85025; 87086; 87147

== ENCOUNTER 2024-02-14 16:16 | Outpatient (AMB) | payer BC, MEDICAID, SELFPAY ==
[2024-02-14 16:17] VITALS: BP 98/64; PULSE 73; O2SAT 99; BMI 28.4
--- NOTE | 2024-02-14 16:17 | A.OFFPC_ITS ---
Vital Signs 02/14/24 16:17 Height 5 ft 2 in Weight 155 lb 8 oz BMI 28.4 BP 98/64 Blood Pressure Location Lt brachial Position Sitting Pulse 73 Pulse Source Pulse Oximeter Pulse Oximetry (%) 99 Oxygen Delivery Method Room Air Intake Visit Reasons: annual PE Key Punch Teacher Required: No Accompanied by: Self / Same As Patient Allergies No Known Allergies [No Known Allergies*] Allergy (Verified 02/14/24 16:50) Medication List - Last Reconciled 02/14/24 by Pato Day MD valacyclovir 1,000 mg PO DAILY Tobacco use date assessed: 02/14/24 Dental Screening Dental Screen Date: 02/14/24 Did you have a dental visit in the last 12 months?: Yes Did you have a dental problem in the last 6 months where you did not have access to dental care?: No Was dental information given to patient?: Patient has dentist HPI annual PE HPI Details Patient comes in today for annual physical examination States that she feels okay except for her left ear Relates (+) bout of increased left ear pain about 3 months ago - states that the pain gradually subsided over a few days but she has noticed on and off left ear discomfort since and sometimes feels that she can hear a crackling sound inside her left ear Has also noticed that her hearing in the left ear seems somewhat off over the past few months She has not noticed any ear drainage lately She denies any headaches or dizziness; denies any fever or sore throat Denies any chest pains, no shortness of breath No nausea/vomiting, no abdominal pain No change in bowel habits noted She denies any acute urinary symptoms She had her follow-up labs done a couple of weeks ago - to discuss her results [facility] Medical History (Updated 02/20/24 @ 01:27 by Pato Day MD) Overweight (BMI 25.0-29.9) History of herpes genitalis Lactating mother Anemia Surgical History No pertinent past surgical history Family History Father Medical history non-contributory Mother Depression Chronic mental illness Maternal Grandmother Parkinson disease Depression Hypertension CVD (cardiovascular disease) Diabetes Maternal Grandfather Diabetes Hypertension Social History Household Members: Spouse and Children Both parents involved: Yes Housing: Apartment Alcohol intake: former Patient Tobacco Use Status: Never used Tobacco e-Cigarette/Vaping Use: Never Used Trauma History: no hx 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 1. Little interest or pleasure in doing things: not at all 2. Feeling down, depressed, or hopeless: not at all 3. Trouble falling or staying asleep, or sleeping too much: not at all 4. Feeling tired or having little energy: not at all 5. Poor appetite or overeating: not at all 6. Feeling bad about yourself - or that you are a failure or have let yourself or your family down: not at all 7. Trouble concentrating on things, such as reading the newspaper or watching television: not at all 8. Moving or speaking so slowly that other people could have noticed. Or the opposite - being so fidgety or restless that you have been moving around a lot more than usual: not at all 9. Thoughts that you would be better off or of hurting yourself in some way: not at all Total score: 0 Depression Screening Interpretation: Negative Depression Screening Done: Yes 70306 - PHQ-9 Billing: Yes Source: Developed by Drs. Nishant Hess, Elizabeth Almanza, Maximo Verma and colleagues, with an educational kenneth from [employer]. Thrive Questionnaire Date Thrive assessed: 02/14/24 I am a: Patient What is your living situation today?: I have a steady place to live Within the past 12 months, did the food you bought not last and you didn't have the money to get more?: Never true Within the past 12 months, did you worry whether your food would run out before you got money to buy more?: Never true Do you have trouble paying for medicines?: No Do you have trouble getting transportation to medical appointments?: No Do you have trouble paying your heating and electricity bill?: No Do you have trouble taking care of your child, family member or friend?: No Do you have trouble with day-to-day activities such as bathing, preparing meals, shopping, managing finances, etc.?: No Are you currently unemployed and looking for a job?: No Are you interested in more education?: No Please select the resources that you would like help with: None Currently or been in a relationship where the following occur: I choose not to answer THRIVE Score: 0 AUDIT C Alcohol Use Questionnaire (AUDIT-C) 1. How often do you have a drink containing alcohol?: Never 2. How many drinks containing alcohol do you have on a typical day when you are drinking?: 1 or 2 3. How often do you have six or more drinks on one occasion?: Never Total Score: 0 Score Reviewed/Action Taken: Yes KRYSTINA-7 AMB Questionnaire KRYSTINA-7 Date KRYSTINA - 7 assessed: 02/14/24 Feeling nervous, anxious, or on edge: 0 = Not at all Not being able to stop or control worryin = Not at all Worrying too much about different things: 0 = Not at all Trouble relaxin = Not at all Being so restless that it is hard to sit still: 0 = Not at all Becoming easily annoyed or irritable: 0 = Not at all Feeling afraid as if something awful might happen: 0 = Not at all Total KRYSTINA-7 score (0-4 normal; 5-9 mild; 10-14 moderate; 15-21 severe): 0 Source: Developed by Drs. Nishant Hess, Elizabeth Almanza, Maximo Verma and colleagues, with an educational kenneth from [employer]. Review of Systems Const Denies chills, Denies fatigue, Denies fever(s), Denies headache(s) and Denies malaise Eyes Denies blurry vision, Denies change in vision, Denies irritation and Denies itchy eyes ENT Denies dysphagia, Denies dizziness, Denies ear discharge, Denies otalgia (but (+) discomfort in the left ear, at times (see HPI)), Denies headache(s), Reports hearing loss (in the left ear, slightly), Denies nasal congestion, Denies neck pain, Denies odynophagia, Denies sinus pain and Denies sore throat Card Denies chest pain, Denies rapid heart rate, Denies irregular heart rhythm, Denies palpitations and Denies dyspnea Resp Denies chest congestion, Denies cough, Denies dyspnea and Denies wheezing GI Denies abdominal pain, Denies bloating, Denies constipation, Denies dysphagia, Denies heartburn, Denies diarrhea, Denies nausea, Denies odynophagia and Denies vomiting Denies hematuria, Denies urinary frequency, Denies dysuria, Denies urinary incontinence and Denies urinary urgency Musc Denies back pain, Denies arthralgias, Denies joint swelling, Denies muscle weakness and Denies neck pain Skin/Breast Denies breast pain, Denies breast mass, Denies change in pigmentation, Denies lesions, Denies rash and Denies unusual bruising Neuro Denies dizziness, Denies headache(s) and Denies paresthesias Psych Denies anxiety and Denies depression Endo Denies fatigue and Denies palpitations Rainer/Lymph Denies easy bruising Aller/Immun Denies itchy eyes and Denies wheezing Physical exam (Primary Care) Vital Signs: Last Vital Signs Pulse 73 02/14/24 16:17 BP 98/64 02/14/24 16:17 Pulse Ox 99 02/14/24 16:17 Oxygen Delivery Method Room Air 02/14/24 16:17 BMI result Body Mass Index 28.4 Tobacco/Smoking Status: Tobacco use Status Tobacco use date assessed 02/14/24 02/14/24 16:19 Patient Tobacco Use Status Never used Tobacco 02/14/24 16:19 e-Cigarette/Vaping Use Never Used 02/14/24 16:19 PHQ-9: PHQ-9 Score PHQ-9: Total score 0 02/14/24 16:52 Depression Screening Interpretation: Negative Thrive Assessment: Date of Thrive Assessment Date Thrive assessed 02/14/24 02/14/24 16:19 Currently or been in a relationship where the following occur: I choose not to answer Const General: no acute distress, alert and awake Orientation/consciousness: patient oriented x3 HENMT Head: Yes normocephalic and Yes atraumatic Ears: external ears normal, TM's normal bilaterally and EAC's normal General nose exam: No nasal discharge present Face and sinus: Yes normal facial exam and Yes sinuses nontender Teeth and gingiva: dentition normal Throat: Yes posterior oropharynx normal and Yes tonsils normal (no TP congestion) Eyes Eyelids: Yes eyelids normal Conjunctivae: conjunctivae normal Pupils: Equal, round and reactive pupils present EOM: EOMs intact bilaterally Neck Neck: Yes no lymphadenopathy and Yes supple Thyroid: Thyroid normal Resp Auscultation: clear to auscultation bilaterally, no rales and no wheezes Cardio Rate: regular rate Rhythm: regular rhythm Heart sounds: no murmurs GI Palpation (GI): Soft to palpation, nontender and No hepatosplenomegaly present Auscultation: normal bowel sounds General: Yes no CVA tenderness Back/Spine/Pelvis Back: no CVA tenderness Thoracic/Lumbar Spine: thoracic and lumbar spine normal to inspection Skin Lesions: no lesions Rashes: no rashes Neuro General: patient oriented x3, moves all extremities, no focal motor deficits and CN's II-XI intact bilaterally Cranial nerves: Yes Equal, round and reactive pupils present Cognition (Neuro): normal cognition Gait exam (Neuro): Normal gait present Extrem General: Yes no clubbing, cyanosis or edema Results Reviewed Results Reviewed: Laboratory Tests 01/28/24 01/28/24 07:23 07:26 WBC 5.7 Hgb 12.0 Hct 37.6 Plt Count 235 Sodium 137 Potassium 3.9 Creatinine 0.84 Estimated GFR > 60 Fasting Glucose 86 Calcium 9.0 D AST 20 ALT 16 Triglycerides 75 Cholesterol 174 LDL Cholesterol, Calc 116 H HDL Cholesterol 43 25-OH Vitamin D Total 37.8 TSH 3.35 Ur Specific [place] 1.020 Urine Protein Negative Urine Glucose (UA) Negative Urine Blood Negative Urine Nitrite Negative Ur Leukocyte Esterase Moderate (2+) H Coding Level of Care Code Est Pt Prev Care 18-39y(46417) Diagnoses Annual physical exam Z00.00 History of herpes genitalis Z86.19 Overweight (BMI 25.0-29.9) E66.3 Additional Codes PHQ-9 - 65918 - PHQ-9 Billing: Yes ([id number]) Assessment & Plan Assessment & Plan (1) Annual physical exam: Code(s): Z00.00 - Encounter for general adult medical examination without abnormal findings Category: Medical Plan: Results of her labs done a couple of weeks ago reviewed and discussed with patient She just had her Pap smear and annual gynecologic exam done a few months ago in August 2023 (2) History of herpes genitalis: Code(s): Z86.19 - Personal history of other infectious and parasitic diseases Category: Medical Plan: She currently has no acute out wakes Continue Valacyclovir PRN as instructed for acute outbreaks (3) Overweight (BMI 25.0-29.9): Code(s): E66.3 - Overweight Category: Medical Plan: Reinforced diet/exercise as tolerated/lose weight Plan To return in 1 year for her next annual physical examination Orders: Orders Complete Blood Count Auto Diff 1 Year D64.9 - Anemia, unspecified, Z00.00 - Encounter for general adult medical examination without abnormal findings Lipid Panel 1 Year E78.00 - Pure hypercholesterolemia, unspecified, Z00.00 - Encounter for general adult medical examination without abnormal findings TSH reflex Free T4 1 Year E78.00 - Pure hypercholesterolemia, unspecified, Z00.00 - Encounter for general adult medical examination without abnormal findings UA CC w/rflx Micro + Cult 1 Year R30.0 - Dysuria, Z00.00 - Encounter for general adult medical examination without abnormal findings Vitamin D 25-OH Total 1 Year E55.9 - Vitamin D deficiency, unspecified, Z00.00 - Encounter for general adult medical examination without abnormal findings Comprehensive Forsan. Panel Fast 1 Year E78.00 - Pure hypercholesterolemia, unspecified, Z00.00 - Encounter for general adult medical examination without abnormal findings
== END 2024-02-14 16:59 | disposition home or self-care (01) ==
PROVIDERS: PCP Internal Medicine; Visit Provider Internal Medicine
DX: Z00.00 Encounter for general adult medical examination without abnormal findings (principal); Z86.19 Personal history of other infectious and parasitic diseases; E66.3 Overweight

== ENCOUNTER → 2024-02-14 16:16 | Outpatient (BNVA) | payer BC, MEDICAID, SELFPAY | PROVIDERS: PCP Internal Medicine; Visit Provider Internal Medicine | DX: Z00.00 Encounter for general adult medical examination without abnormal findings (principal); E66.3 Overweight; Z68.28 Body mass index [BMI] 28.0-28.9, adult; Z86.19 Personal history of other infectious and parasitic diseases | CPT/HCPCS: 96127 ==

== ENCOUNTER 2024-04-18 07:42 | Outpatient (REF) | payer BC, MEDICAID, SELFPAY ==
[2024-04-18 08:47] LABS: HCG Quantitative 357 mIU/mL
== END 2024-04-18 07:43 | disposition home or self-care (01) ==
LOC: HO.LAB 07:42
PROVIDERS: PCP Internal Medicine; Visit Provider Advanced Practice Midwife
DX: O03.9 Complete or unspecified spontaneous abortion without complication (principal)
CPT/HCPCS: 36415; 84702

== ENCOUNTER 2024-05-01 06:45 | Outpatient (REF) | payer BC, MEDICAID, SELFPAY ==
[2024-05-01 08:01] LABS: HCG Quantitative 284 mIU/mL
== END 2024-05-01 06:46 | disposition home or self-care (01) ==
LOC: HO.LAB 06:45
PROVIDERS: PCP Internal Medicine; Visit Provider Advanced Practice Midwife
DX: O03.9 Complete or unspecified spontaneous abortion without complication (principal)
CPT/HCPCS: 36415; 84702

== ENCOUNTER → 2024-05-04 11:20 | Outpatient (BNVA) | payer BC, MEDICAID, SELFPAY | PROVIDERS: PCP Internal Medicine; Visit Provider Advanced Practice Midwife ==

== ENCOUNTER → 2024-05-04 11:20 | Outpatient (AMB) | payer BC, MEDICAID, SELFPAY | END | disposition home or self-care (01) | PROVIDERS: PCP Internal Medicine; Visit Provider Advanced Practice Midwife | CPT/HCPCS: 99213 ==

== ENCOUNTER 2024-05-23 12:39 | Outpatient (REF) | payer BC, MEDICAID, SELFPAY ==
[2024-05-23 13:17] LABS: HCG Quantitative < 2 mIU/mL
== END 2024-05-23 12:40 | disposition home or self-care (01) ==
LOC: HO.LAB 12:39
PROVIDERS: PCP Internal Medicine; Visit Provider Advanced Practice Midwife
DX: O03.9 Complete or unspecified spontaneous abortion without complication (principal)
CPT/HCPCS: 36415; 84702

== ENCOUNTER 2024-10-05 08:54 | Outpatient (AMB) | payer BC, MEDICAID, SELFPAY ==
[2024-10-05 08:56] VITALS: BP 94/60; PULSE 86; TEMP 36.7; O2SAT 99; BMI 28.7
--- NOTE | 2024-10-05 08:56 | AM.OFFWIN_ITS ---
Intake Vital Signs 10/05/24 08:56 Height 5 ft 2 in Weight 157 lb 2 oz BMI 28.7 BP 94/60 Blood Pressure Location Lt brachial Position Sitting Pulse 86 Pulse Source Pulse Oximeter Temp 98.1 F Temp Source Oral Pulse Oximetry (%) 99 Oxygen Delivery Method Room Air Oxygen Flow Rate 99 Intake Visit Reasons: EP Lip swelling Patient Tobacco Use Status: Never used Tobacco Director Communications Required: No Is last menstrual period known: Yes Last menstrual period: 09/23/24 Post menopausal: No Patient : No Allergies No Known Allergies (No Known Allergies*) Allergy (Verified 10/05/24 09:01) Do you need a note to return to daycare/school/sports/work: Yes HPI HPI Comments History of Present Illness Details This is a 34-year-old female presenting for evaluation of swelling in her upper lip this started approximately 2:00 a.m.. Patient states that she was having oral sex with her when the swelling started. Patient states that she is uncomfortable with a ?fat upper lip? but denies any overt pain. Patient states this has never happened before. Patient does have a history of oral herpes and states that this does not feel similar. Additionally, [place] OFF brand bug repellent on her lips yesterday, but immediately wiped it off. Patient denies any swelling of her lower lip or tongue, new oral lesions and denies any shortness of breath, difficulty swallowing or drooling. She has not taken any medication for treatment of this symptom. [facility] Medical History Overweight (BMI 25.0-29.9) History of herpes genitalis Lactating mother Anemia Surgical History No pertinent past surgical history Family History Father Medical history non-contributory Mother Depression Chronic mental illness Maternal Grandmother Parkinson disease Depression Hypertension CVD (cardiovascular disease) Diabetes Maternal Grandfather Diabetes Hypertension Social History Household Members: Spouse and Children Both parents involved: Yes Housing: Apartment Alcohol intake: former Patient Tobacco Use Status: Never used Tobacco e-Cigarette/Vaping Use: Never Used Trauma History: no hx Patient : No 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, 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 Sexual orientation: Straight/Heterosexual Gender identity: Female Cognitive needs: No Hearing needs: No Vision needs: No Female Reproductive History Menstrual Age of Menarche: 12 Date of last menstrual period: 09/23/24 Review of Systems Const All systems reviewed & are unremarkable except as noted in HPI and below Reports no additional complaints Eyes Reports no additional complaints ENT Denies throat swelling, Denies tongue swelling and Reports other (swelling upper lip) Card Reports no additional complaints and Denies dyspnea Resp Reports no additional complaints, Denies cough and Denies dyspnea GI Reports no additional complaints Reports no additional complaints Musc Reports no additional complaints Skin/Breast Reports system reviewed and no additional complaints, except as documented Neuro Reports no additional complaints Psych Reports no additional complaints Endo Reports no additional complaints Rainer/Lymph Reports no additional complaints Aller/Immun Reports no additional complaints, Denies throat swelling and Denies tongue swelling Physical Exam Vital Signs: Last Vital Signs Temp 98.1 F 10/05/24 08:56 Pulse 86 10/05/24 08:56 BP 94/60 10/05/24 08:56 Pulse Ox 99 10/05/24 08:56 Oxygen Delivery Method Room Air 10/05/24 08:56 Oxygen Flow Rate 99 10/05/24 08:56 BMI result Body Mass Index 28.7 Const General: cooperative, healthy appearing, comfortable, no acute distress, well developed, alert and awake; No ill appearing Nutritional Appearance: well nourished Orientation/consciousness: patient oriented x3 Limitations: no limitations HEENT Head: Yes normal to inspection Face and sinus: No normal facial exam (edema upper lip and philtrum without erythema or other cutaneous lesions), No abrasion, No crepitus, No ecchymosis, No erythema, Yes edema and No Facial tenderness on exam of face and sinuses Mouth: Normal oral and palatal mucosa present, lip abnormal, tongue normal, oropharynx normal, moist mucous membranes, no audible dysphonia, no drooling, lip abnormal upper swelling; without lacerations, without lesions and without rashes and no trismus Teeth and gingiva: dentition normal and gingiva normal Throat: Yes posterior oropharynx normal, Yes uvula midline, No posterior oropharynx abnormal, No uvula laterally displaced and No uvular edema Neck Neck: Yes normal visual inspection, Yes full ROM and Yes no lymphadenopathy Lymphatic: no lymphadenopathy noted Skin General skin exam: no rashes or lesions noted Neuro General: patient oriented x3 Psych Appearance: grossly normal Mental Status: mental status grossly normal Insight: Good insight present (Psych) Judgement: Good judgement present (Psych) Assessment & Plan Assessment & Plan (1) Lip edema: Comment: Patient is nontoxic appearing, is managing secretions independently, no trismus with isolated upper lip and philtrum edema; no airway compromise Code(s): R60.0 - Localized edema Plan: Patient is instructed to use diphenhydramine 25 mg q.6 hours for the next 24 hours; patient is instructed to go to the emergency department directly if she has any swelling of her tongue, is not managing her secretions or has difficulty swallowing. Patient is encouraged to follow up at any time as needed Coding Level of Care Code Est Pt Level 3 (78944) Diagnoses Lip edema R60.0 Time Spent (min) 20
== END 2024-10-05 09:17 | disposition home or self-care (01) ==
PROVIDERS: PCP Internal Medicine; Visit Provider Physician Assistant
DX: R60.0 Localized edema (principal)

== ENCOUNTER 2024-11-22 01:56 | Emergency (ER) | payer BC, MEDICAID, SELFPAY ==
--- NOTE | 2024-11-22 | ECG_ITS ---
Test Reason : CP Blood Pressure : */* mmHG Vent. Rate : 75 BPM Atrial Rate : 75 BPM P-R Int : 124 ms QRS Dur : 98 ms QT Int : 388 ms P-R-T Axes : 41 53 15 degrees QTcB Int : 433 ms Normal sinus rhythm with sinus arrhythmia Normal ECG When compared with ECG of 27-Jan-2023 09:58, No significant change was found Referred By: Generic ED Physician Electronically Signed By: CONNIE BOWLES
--- NOTE | ~2024-11-22 | XR_ITS ---
CLINICAL HISTORY: CP 1 view chest x-ray Comparison: None provided Findings: No consolidation or effusion. Heart size is normal. No acute fracture. IMPRESSION: 1. No acute findings. This document has been electronically signed by: Desmond Blunt MD on 11/22/2024 02:55:35
[2024-11-22 02:01] VITALS: BP 121/81; PULSE 95; O2SAT 99
[2024-11-22 02:03] VITALS: BMI 27.4
[2024-11-22 02:22] LABS: Hematocrit 36.3 % (37.0-47.0); Hemoglobin 11.5 g/dl (12.0-16.0); Imm Gran Abs Auto 0.01 X10*3/uL (0.00-0.03); Imm Gran Pct Auto 0.1 % (0.0-0.4); Lymphocytes Absolute Auto 2.6 X10*3/uL (1.2-4.9); MANUAL DIFF FLAG NO; Mean Corpuscular HGB Conc 31.7 g/dl (31.0-35.0); Mean Corpuscular Hemoglobin 24.8 pg (27.0-33.0); Mean Corpuscular Volume 78.4 fL (80.0-98.0); NRBC Abs Auto 0.000 X10*3/uL (0.0-0.012); NRBC Pct Auto 0.0 /100WBC (0.0-0.2); Platelet Count 238 X10*3/uL (160-400); Red Blood Count 4.63 X10*6/uL (4.20-5.50); White Blood Count 8.2 X10*3/uL (4.8-10.8)
[2024-11-22 02:26] LABS: UPreg QC Valid YES
[2024-11-22 02:27] LABS: Appearance Urine Clear; Glucose Urine UA Negative (Negative); PH 7.0 (5.0-9.0); Specific Gravity - Urine <= 1.005 (1.005-1.025); UMIC TRIGGER UACC YES
[2024-11-22 02:37] LABS: Alanine Aminotransferase 21 U/L (0-31); Albumin Level 4.2 g/dL (3.5-5.0); Alkaline Phosphatase 45 U/L (39-117); Anion Gap 11 (12-20); Aspartate Amino Transferase 22 U/L (5-31); Blood Urea Nitrogen 12 mg/dL (9-16); Calcium 9.1 mg/dL (8.4-10.2); Carbon Dioxide 23 mmol/L (22-29); Chloride 107 mmol/L (96-108); Creatinine Clr Calc Pharmacy 77.8; Estimated Glomerular Filt Rate > 60; Potassium 3.6 mmol/L (3.3-5.1); Sodium 137 mmol/L (135-145); Total Protein 7.2 g/dL (6.5-8.0)
[2024-11-22 02:42] VITALS: BP 101/62; PULSE 73; RESP 18; TEMP 36.9; O2SAT 100
[2024-11-22 02:45] LABS: Troponin-I High Sensitivity < 2.7 ng/L (<3.5-17.0)
--- NOTE | 2024-11-22 03:06 | ED.CHESTPAIN ---
HPI - Chest Pain General Chief Complaint: Chest Pain Stated Complaint: SOB, CP left sided under breast Time Seen by Provider: 11/22/24 03:05 Source: patient and family Mode of arrival: ambulatory Limitations: no limitations History of Present Illness ED Provider: Eusebio TROY HPI narrative: The patient is a 34-year-old female presenting to the ED for evaluation after she woke suddenly just prior to arrival in the ED with sensation of panic, racing heart, shortness of breath, difficulty swallowing, and feeling weak and shaky. The patient reports symptoms lasted approximately 20-30 minutes while awaiting EMS activation. Patient reports symptoms began to improve during EMS transport. The patient reports she was feeling well, at baseline when she went to bed, denies any recent fever/chills, nausea, vomiting, chest pain, shortness of breath, abdominal pain, sick contacts, trauma, or other acute complaint. The patient reports she has experienced approximately 5-6 other episodes of similar presentation over the past 3-4 months. Patient has not discussed this with her PCP but is scheduled to see her PCP in December, was planning to discuss it at that time. The patient reports symptoms in previous episodes lasted anywhere from 15 minutes to 1 hour before resolving spontaneously. Patient reports this evening her symptoms were more severe prompting EMS activation. The patient's is present and reports patient intermittently snores in her sleep. The patient denies previous sleep studies. Related Data Home Medications ?Medication ?Instructions ?Recorded ?Confirmed desogestrel-e.estradiol 0.15 1 tab PO DAILY 10/05/24 mg-0.02 mg(21)/e.estrad 0.01 mg(5) tablet (Kariva (28)) Previous Rx's ?Medication ?Instructions ?Recorded valacyclovir 1 gram tablet 1,000 mg PO DAILY #30 tabs 09/02/23 Allergies Allergy/AdvReac Type Severity Reaction Status Date / Time No Known Allergies (No Known Allergy Verified 11/22/24 02:05 Allergies*) Review of Systems Review of Systems: Yes all other systems are reviewed and are negative PMFSH Past Medical History Medical History Overweight (BMI 25.0-29.9) History of herpes genitalis Lactating mother Anemia Surgical History No pertinent past surgical history Family History Family History Father Medical history non-contributory Mother Depression Chronic mental illness Maternal Grandmother Parkinson disease Depression Hypertension CVD (cardiovascular disease) Diabetes Maternal Grandfather Diabetes Hypertension Social History Social History Household Members: Spouse and Children Housing: Apartment Alcohol intake: former Patient Tobacco Use Status: Never used Tobacco e-Cigarette/Vaping Use: Never Used Trauma History: no hx Advance Directives: No Advance Directives Information Provided: Yes Do you have a plan to hurt others: No Plan 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 Vital signs as documented. HEAD: Atraumatic, normocephalic. EYES: EOMs grossly intact, pupils equal, conjunctiva clear, no exudate. ENT: Nares patent, no discharge. Airway patent, no audible stridor, visible mucosa is pink and moist without noted lesions. NECK: Trachea is midline, no obvious masses or gross abnormalities. CHEST: Symmetric movement, normal appearance. LUNGS: LS present and CTAB, no w/r/r. Non-labored work of breathing. CARDIAC: Regular Rhythm, S1/S2 appreciated, no murmurs, rubs or gallops. ABDOMEN: Abdomen soft and non-tender x4 quadrants, no palpable masses or organomegaly. : Deferred. EXTREMITIES: Normal tone, moves all extremities spontaneously without reported pain. No obvious acute injury or deformity noted. NEURO: Alert and oriented x3, CN II-XII appear grossly intact. Cerebellar Functioning grossly intact. No obvious sensory or motor deficits. Speech clear and appropriate. PSYCH: normal affect, appropriate eye contact, fluid speech, with appropriate response to questioning. No reported suicidality or homicidality. SKIN: Warm, dry, color appropriate, normal turgor. No rashes noted. Medical Decision Making Medical Decision Making [facility] Narrative: 3:28 AM 11/22/2024 (Fiona TROY): The patient is a 34-year-old female presenting to the ED for evaluation of waking just prior to arrival in the ED in a panic state with racing heart palpitations, shortness of breath, sensation of difficulty swallowing, and generalized weakness and shakiness. The patient reports this is the 5th or 6th episode of similar presentation in the past 3-4 months, symptoms always occur while sleeping, and patient denies any complaint prior to going to sleep when symptoms occur. The patient's spouse advises patient does snore intermittently. In the ED patient is markedly well-appearing, no evidence of acute distress, no acute findings on exam. The patient's EKG is nonischemic, initial troponin is negative, laboratory evaluation reveals no leukocytosis, significant anemia, electrolyte abnormality, SANDER, or LFT abnormality. The patient's urinalysis shows no evidence of infection. test is negative. Chest x-ray shows no acute cardiopulmonary process. The patient's presentation appears consistent with obstructive sleep apnea. The patient's troponin will be repeated at 04:15, pending unremarkable repeat troponin the patient will be discharged with instructions to contact PCP office to report symptoms , discuss reassuring ED workup, and request sleep study prior to PCP visit scheduled in December. Patient stated her understanding and agreement with the recommended care plan. Admission/Observation Consideration of admission/observation: Escalation of care including admission/observation considered Lab Data [facility] Lab Attestation statement: I reviewed the patient's lab results. 11/22/24 02:17 11/22/24 02:17 Labs: Lab Results 11/22/24 Range/Units 02:17 WBC 8.2 (4.8-10.8) X10*3/uL RBC 4.63 (4.20-5.50) X10*6/uL Hgb 11.5 L (12.0-16.0) g/dl Hct 36.3 L (37.0-47.0) % MCV 78.4 L (80.0-98.0) fL MCH 24.8 L (27.0-33.0) pg MCHC 31.7 (31.0-35.0) g/dl RDW 15.0 (11.0-16.0) % Plt Count 238 (160-400) X10*3/uL MPV 12.3 (9.4-12.3) fL Immature Gran % (Auto) 0.1 (0.0-0.4) % Neut % (Auto) 59.4 (45-73) % Lymph % (Auto) 31.8 (20-40) % [place] % (Auto) 7.2 (2-11) % Eos % (Auto) 1.1 (0-4) % Baso % (Auto) 0.4 (0-2) % Lymph # (Auto) 2.6 (1.2-4.9) X10*3/uL [place] # (Auto) 0.6 (0.1-1.2) X10*3/uL Eos # (Auto) 0.1 (0.0-0.4) X10*3/uL Baso # (Auto) 0.0 (0.0-0.2) X10*3/uL Abs Immat Gran (auto) 0.01 (0.00-0.03) X10*3/uL Absolute Neuts (auto) 4.9 (2.0-8.3) x10*3/uL Absolute Nucleated RBC 0.000 (0.0-0.012) X10*3/uL Nucleated RBC % (auto) 0.0 (0.0-0.2) /100WBC Sodium 137 (135-145) mmol/L Potassium 3.6 (3.3-5.1) mmol/L Chloride 107 (96-108) mmol/L Carbon Dioxide 23 (22-29) mmol/L Anion Gap 11 L (12-20) BUN 12 (9-16) mg/dL Creatinine 0.93 (0.5-1.4) mg/dL Estim Creat Clear Calc 77.8 Estimated GFR > 60 Random Glucose 103 (60-115) mg/dL Calcium 9.1 (8.4-10.2) mg/dL Total Bilirubin 0.2 (0.0-1.0) mg/dL AST 22 (5-31) U/L ALT 21 (0-31) U/L Alkaline Phosphatase 45 (39-117) U/L Troponin I High Sens < 2.7 (<3.5-17.0) ng/L Total Protein 7.2 (6.5-8.0) g/dL Albumin 4.2 (3.5-5.0) g/dL Urine Color Yellow Urine Appearance Clear Urine pH 7.0 (5.0-9.0) Ur Specific [place] <= 1.005 (1.005-1.025) Urine Protein Negative (Neg-Trace) mg/dL Urine Glucose (UA) Negative (Negative) mg/dL Urine Ketones Negative (Negative) mg/dL Urine Blood Negative (Negative) Urine Nitrite Negative (Negative) Ur Leukocyte Esterase Trace H (Negative) Urine RBC 0-2 (0-2) /HPF Urine WBC 0-5 (0-5) /HPF Ur Squamous Epith Cells 0-2 (0-2) /HPF Urine Bacteria None Seen (None Seen) Hyaline Casts 0-2 (0-2) /LPF Urine Test NEGATIVE (NEGATIVE) Independent Interpretation I performed an independent interpretation of an: EKG (EKG shows sinus rhythm with a rate of 75, no evidence of acute ischemia, no ST elevation, no ectopy. QTC 433. Compared to previous on 01/27/2023 there are no acute morphology changes. ) Radiology Impression Discussion of test interpretation with radiology: I have reviewed the radiologist's reading. Radiologist Impression: CLINICAL HISTORY: CP 1 view chest x-ray Comparison: None provided Findings: No consolidation or effusion. Heart size is normal. No acute fracture. IMPRESSION: 1. No acute findings. This document has been electronically signed by: Desmond Blunt MD on 11/22/2024 02:55:35 Independent Historian Clinical information obtained from an independent historian. History obtained from or confirmed by: Spouse External Record Review External record reviewed: Outpatient record Discharge Plan Discharge Clinical Impression: Obstructive sleep apnea Patient Disposition: Home, Self-Care Additional Instructions: Thank you for choosing [facility]'s Emergency Department for your care today. Your laboratory evaluation, EKG, chest x-ray, and exam today are all markedly reassuring. There is no evidence of any acute cardiac, pulmonary, infectious, metabolic, or other dangerous cause for your symptoms. At this time there is no indication for admission to the hospital or continued ED observation, and it is safe to discharge you home. Your symptoms are consistent with obstructive sleep apnea. Please read the attached information regarding sleep apnea. We recommend that you follow up with the primary care provider by calling before your next scheduled appointment to discuss your symptoms, your ED workup, and to consider obtaining a sleep study prior to your next PCP appointment. Please follow up with your primary care physician for re-evaluation, additional management of your symptoms, and continued preventative care. If you do not have a primary care physician, please call the [facility] at [phone] to establish a new primary care physician. While waiting to establish your new primary care physician, you can call our Walk-in Care Clinic at [phone] for non-emergency needs. Please return to the emergency department if you develop a severe or sudden change in your symptoms, a fever over 100.4 that does not improve with Tylenol or Ibuprofen, recurrent vomiting, or any other new or worsening symptoms or concerns. Prescriptions: No Action valacyclovir 1 gram tablet 1,000 mg PO DAILY Qty: 30 0RF Rx Instructions: One tablet 3-5 days as needed for outbreaks desog-e.estradiol/e.estradiol [Kariva (28)] 0.15-0.02 mgx21 /0.01 mg x 5 tablet 1 tab PO DAILY Referrals: Physician,Jose F J [Primary Care Provider, Medical] Clinical Impression: Obstructive sleep apnea Print Language: Malian
[2024-11-22 04:48] LABS: Troponin-I High Sensitivity < 2.7 ng/L (<3.5-17.0)
[2024-11-22 05:21] VITALS: BP 104/71; PULSE 67; RESP 16; TEMP 36.3; O2SAT 100
== END 2024-11-22 05:26 | disposition home or self-care (01) ==
PROVIDERS: Physician Assistant; Emergency Provider Emergency Medicine
DX: G47.33 Obstructive sleep apnea (adult) (pediatric) (principal); R07.89 Other chest pain; R06.02 Shortness of breath; R11.2 Nausea with vomiting, unspecified; Z79.899 Other long term (current) drug therapy
CPT/HCPCS: 36415; 71045; 80053; 81001; 81003; 81025; 84484; 85025; 93005; 99283

== ENCOUNTER → 2024-11-22 02:06 | Outpatient (BNV) | payer BC, MEDICAID, SELFPAY | PROVIDERS: Emergency Provider Emergency Medicine; Visit Provider Internal Medicine | DX: R07.9 Chest pain, unspecified (principal) | CPT/HCPCS: 93010 ==

== ENCOUNTER → 2024-11-22 02:08 | Outpatient (BNV) | payer BC, MEDICAID, SELFPAY | PROVIDERS: Visit Provider Student in an Organized Health Care Education/Training Program | DX: R07.9 Chest pain, unspecified (principal) | CPT/HCPCS: 71045 ==

== ENCOUNTER 2024-12-07 08:54 | Outpatient (AMB) | payer BC, MEDICAID, SELFPAY ==
[2024-12-07 08:59] VITALS: BP 110/60; PULSE 93; O2SAT 99; BMI 28.3
--- NOTE | 2024-12-07 08:59 | MHC.PC.OV ---
Vital Signs 12/07/24 08:59 Height 5 ft 2 in Weight 155 lb BMI 28.3 BP 110/60 Blood Pressure Location Lt brachial Position Sitting Pulse 93 Pulse Oximetry (%) 99 Oxygen Delivery Method Room Air Intake Visit Reasons: [facility] 11/22 SOB, CP left sided under breast Allergies No Known Allergies (No Known Allergies*) Allergy (Verified 11/22/24 02:05) Tobacco use date assessed: 02/14/24 Dental Screening Dental Screen Date: 02/14/24 HPI HPI Comments History of Present Illness Details 34 y/o Female patient who presents to the clinic today for EDF. Pt was admitted at [facility] on 11/22 for an evaluation of symptoms of waking up in the middle of night with sensation of panic, racing heart, shortness of breath, difficulty swallowing, confused and feeling weak and shaky. She also reports Snoring on her sleep. The patient reports symptoms lasted approximately 20-30 minutes. The ED recommended Sleep Study to r/o [facility]. ON LICENSE OF [facility] Medical History (Updated 12/07/24 @ 09:28 by Shanel Farmer NP) Sleep apnea Overweight (BMI 25.0-29.9) History of herpes genitalis Lactating mother Anemia Surgical History No pertinent past surgical history Family History Father Medical history non-contributory Mother Depression Chronic mental illness Maternal Grandmother Parkinson disease Depression Hypertension CVD (cardiovascular disease) Diabetes Maternal Grandfather Diabetes Hypertension Social History Household Members: Spouse and Children Both parents involved: Yes Housing: Apartment Alcohol intake: former Patient Tobacco Use Status: Never used Tobacco e-Cigarette/Vaping Use: Never Used Trauma History: no hx 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 1. Little interest or pleasure in doing things: not at all 2. Feeling down, depressed, or hopeless: not at all 3. Trouble falling or staying asleep, or sleeping too much: several days 4. Feeling tired or having little energy: several days 5. Poor appetite or overeating: more than half the days 6. Feeling bad about yourself - or that you are a failure or have let yourself or your family down: not at all 7. Trouble concentrating on things, such as reading the newspaper or watching television: several days 8. Moving or speaking so slowly that other people could have noticed. Or the opposite - being so fidgety or restless that you have been moving around a lot more than usual: not at all 9. Thoughts that you would be better off or of hurting yourself in some way: not at all Total score: 5 30907 - PHQ-9 Billing: Yes Source: Developed by Drs. Nishant Hess, Elizabeth Almanza, Maximo Verma and colleagues, with an educational kenneth from [employer]. Thrive Questionnaire Date Thrive assessed: 12/06/24 I am a: Patient What is your living situation today?: I have a steady place to live Within the past 12 months, did the food you bought not last and you didn't have the money to get more?: Never true Within the past 12 months, did you worry whether your food would run out before you got money to buy more?: Never true Do you have trouble paying for medicines?: No Do you have trouble getting transportation to medical appointments?: No Do you have trouble paying your heating and electricity bill?: No Do you have trouble taking care of your child, family member or friend?: No Do you have trouble with day-to-day activities such as bathing, preparing meals, shopping, managing finances, etc.?: No Are you currently unemployed and looking for a job?: No Are you interested in more education?: No Please select the resources that you would like help with: None Currently or been in a relationship where the following occur: I choose not to answer THRIVE Score: 0 AUDIT C Alcohol Use Questionnaire (AUDIT-C) 1. How often do you have a drink containing alcohol?: Never 2. How many drinks containing alcohol do you have on a typical day when you are drinking?: 1 or 2 3. How often do you have six or more drinks on one occasion?: Never Total Score: 0 KRYSTINA-7 AMB Questionnaire KRYSTINA-7 Date KRYSTINA - 7 assessed: 12/07/24 Feeling nervous, anxious, or on edge: 0 = Not at all Not being able to stop or control worryin = Not at all Worrying too much about different things: 0 = Not at all Trouble relaxin = Not at all Being so restless that it is hard to sit still: 0 = Not at all Becoming easily annoyed or irritable: 0 = Not at all Feeling afraid as if something awful might happen: 0 = Not at all Total KRYSTINA-7 score (0-4 normal; 5-9 mild; 10-14 moderate; 15-21 severe): 0 Source: Developed by Drs. Nishant Hess, Elizabeth Almanza, Maximo Verma and colleagues, with an educational kenneth from [employer]. KRYSTINA-7 Assessment Billing KRYSTINA-7 Assessment Tool: KRYSTINA-7 Assessment 41277 Review of Systems Const All systems reviewed & are unremarkable except as noted in HPI and below Physical exam (Primary Care) Vital Signs: Last Vital Signs Pulse 93 12/07/24 08:59 BP 110/60 12/07/24 08:59 Pulse Ox 99 12/07/24 08:59 Oxygen Delivery Method Room Air 12/07/24 08:59 BMI result Body Mass Index 28.3 Tobacco/Smoking Status: Tobacco use Status Tobacco use date assessed 02/14/24 12/07/24 09:02 Patient Tobacco Use Status Never used Tobacco 12/07/24 09:02 e-Cigarette/Vaping Use Never Used 12/07/24 09:02 PHQ-9: PHQ-9 Score PHQ-9: Total score 5 12/07/24 09:02 Thrive Assessment: Date of Thrive Assessment Date Thrive assessed 12/06/24 12/07/24 09:02 Currently or been in a relationship where the following occur: I choose not to answer Const General: no acute distress Nutritional Appearance: well nourished Orientation/consciousness: patient oriented x3 Resp Effort & Inspection: normal respiratory effort Auscultation: clear to auscultation bilaterally Cardio Heart sounds: S1 normal heart sound present and S2 normal heart sound present Neuro General: patient oriented x3, gait normal and moves all extremities Motor exam (neuro): 5/5 motor strength present throughout Psych Speech and movement: Normal speech and movement present Coding Level of Care Code Est Pt Level 4 (36228) Diagnoses Sleep apnea G47.30 Primary sleep apnea of type: unspecified type Additional Codes KRYSTINA-7 Assessment Billing - KRYSTINA-7 Assessment Tool: KRYSTINA-7 Assessment 65698 ([id number]) PHQ-9 - 80624 - PHQ-9 Billing: Yes ([id number]) Time Spent (min) 20 Assessment & Plan Assessment & Plan (1) Sleep apnea: Code(s): G47.30 - Sleep apnea, unspecified Category: Medical Qualifiers: Primary sleep apnea of type: unspecified type Plan: Placed referral to Sleep clinic Advised Pt not sleep on her Back, try side sleeping. Discussed Good Sleep Hygiene. F/U with PCP. Orders: Referrals Sleep Medicine Referral G47.30 - Sleep apnea, unspecified
== END 2024-12-07 10:36 | disposition home or self-care (01) ==
LOC: HO.HMCH 08:54
PROVIDERS: Visit Provider Nurse Practitioner Family
DX: G47.30 Sleep apnea, unspecified (principal)

== ENCOUNTER → 2024-12-07 08:54 | Outpatient (BNVA) | payer BC, MEDICAID, SELFPAY | PROVIDERS: Visit Provider Nurse Practitioner Family | DX: E66.3 Overweight (principal); G47.30 Sleep apnea, unspecified; Z68.28 Body mass index [BMI] 28.0-28.9, adult | CPT/HCPCS: 96127 ==

== ENCOUNTER 2024-12-11 08:51 | Outpatient (AMB) | payer BC, MEDICAID, SELFPAY ==
[2024-12-11 09:06] VITALS: BP 108/60; PULSE 73; O2SAT 99; BMI 28.0
--- NOTE | 2024-12-11 09:06 | A.OFFVIS_ITS ---
Vital Signs 12/11/24 09:06 Height 5 ft 2 in Weight 153 lb 4 oz BMI 28.0 BP 108/60 Blood Pressure Location Rt brachial Position Sitting Pulse 73 Pulse Source Pulse Oximeter Pulse Oximetry (%) 99 Oxygen Delivery Method Room Air Intake Visit Reasons: INP - Sleep apnea Intake Note: Patient presents [employer]. waking up in the middle of night with sensation of panic, racing heart, shortness of breath, difficulty swallowing, confused and feeling weak and shaky. She also reports Snoring/gasping in her sleep. The patient reports symptoms lasted approximately 20-30 minutes. Goes to bed at 11pm-12am wakes up 6:30-7am. No history of sleep studies. Accompanied by: Self / Same As Patient Allergies No Known Allergies (No Known Allergies*) Allergy (Verified 12/11/24 09:10) HPI Comments Details: 34 year old female is here for an evaluation of sleep apnea per her pcp. 10/2024 ED visit for SOB, panic attack, palpitations and shakiness with chills. She called the ambulance and [place] [facility] [place] labs, chest xray and EKG work up all normal. She goes to sleep at midnight and wakes up at 7am. She has one or 2 bathroom breaks. She snores loudly, with gasping for air, worse when she is on her back. Denies morning headaches,bought a special c-spine neck pillow for neck pain. 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 She notices chronic weakness in hands and legs bilaterally with calve cramps bilaterally which wake her up from her sleep. She denies anxiety, and mood is stable. Her diet is good. Memory is poor, she gets confused, has brain fog and she thought she saw a hotel room in her bedroom. 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 She gets lost and forgets names of streets where she is going, though she grew up in [place]. RLS symptoms of numbness, tingling, twitching in feet does not wake her up but the cramps are very painful. [facility] Medical History Sleep apnea Overweight (BMI 25.0-29.9) History of herpes genitalis Lactating mother Anemia Surgical History No pertinent past surgical history Family History Father Medical history non-contributory Mother Depression Chronic mental illness Maternal Grandmother Parkinson disease Depression Hypertension CVD (cardiovascular disease) Diabetes Maternal Grandfather Diabetes Hypertension Social History Household Members: Spouse and Children Both parents involved: Yes Housing: Apartment Alcohol intake: former Patient Tobacco Use Status: Never used Tobacco e-Cigarette/Vaping Use: Never Used Trauma History: no hx 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, 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 Sexual orientation: Straight/Heterosexual Gender identity: Female Cognitive needs: No Hearing needs: No Vision needs: No Female Reproductive History Menstrual Age of Menarche: 12 Physical Exam Vital Signs: Last Vital Signs Pulse 73 12/11/24 09:06 BP 108/60 12/11/24 09:06 Pulse Ox 99 12/11/24 09:06 Oxygen Delivery Method Room Air 12/11/24 09:06 BMI result Body Mass Index 28.0 Const General: cooperative and comfortable Orientation/consciousness: patient oriented x3 HEENT Face and sinus: Yes face symmetric Teeth and gingiva: other ([place] score is 4) Eyes Pupils: Equal, round and reactive pupils present Neck Neck: Yes full ROM Resp Effort & Inspection: normal respiratory effort and able to speak in complete sentences Neuro General: patient oriented x3 and moves all extremities Cranial nerves: Yes Equal, round and reactive pupils present, Yes Normal accommodation reflex present, Yes Normal facial strength present, Yes Ability to bilaterally rotate head present and Yes Ability to bilaterally elevate shoulders present Cognition (Neuro): normal cognition Gait exam (Neuro): Normal gait present Motor exam (neuro): 5/5 motor strength present throughout and Normal motor muscle tone present throughout Deep tendon reflexes (DTR's): Right triceps reflex intensity grade: 2+, Left triceps reflex intensity grade: 2+, Rt Biceps (C5, C6): 2+, Left biceps reflex intensity grade: 2+, Right brachioradialis reflex intensity grade: 2+, Left brachioradialis reflex intensity grade: 2+, Right patellar reflex intensity grade: 2+ and Left patellar reflex intensity grade: 2+ Psych Appearance: grossly normal Mental Status: mental status grossly normal Speech and movement: Normal speech and movement present Affect: normal affect Attitude: cooperative Thought process: Normal thought process present Assessment & Plan Assessment & Plan (1) Excessive daytime sleepiness: Code(s): G47.19 - Other hypersomnia Category: Medical (2) Periodic limb movements of sleep: Code(s): G47.61 - Periodic limb movement disorder Category: Medical (3) Anemia: Code(s): D64.9 - Anemia, unspecified Category: Medical Qualifiers: Anemia type: unspecified type Qualified Code(s): D64.9 - Anemia, unspecified (4) Confusion and disorientation: Code(s): R41.0 - Disorientation, unspecified Category: Medical (5) RLS (restless legs syndrome): Code(s): G25.81 - Restless legs syndrome Category: Medical Plan PSG to r/o LAZ with PLMD / as she has rls. RLS Gabapentin 100mg po at bedtime Labs to r/o deficiencies/ anemia Orders: Orders RT PSG in-lab sleep study Today G47.19 - Other hypersomnia, G47.61 - Periodic limb movement disorder Complete Blood Count no Diff Today D64.9 - Anemia, unspecified Comprehensive Met. Panel Today D64.9 - Anemia, unspecified Ferritin Today D64.9 - Anemia, unspecified Methylmalonic Acid Today D64.9 - Anemia, unspecified, G47.9 - Sleep disorder, unspecified, R53.83 - Other fatigue Vitamin B12 and Folate Today D64.9 - Anemia, unspecified EEG electroencephalogram Today R41.0 - Disorientation, unspecified Homocysteine Today D64.9 - Anemia, unspecified, G47.9 - Sleep disorder, unspecified, R53.83 - Other fatigue Vitamin D 25-OH Total Today D64.9 - Anemia, unspecified Vitamin B6 Today D64.9 - Anemia, unspecified TSH reflex Free T4 Today D64.9 - Anemia, unspecified Vitamin B1 Today D64.9 - Anemia, unspecified Medications: New gabapentin 100 mg PO BEDTIME 90 caps 0RF RLS 3 months MDD 100mg G25.81 - Restless legs syndrome Coding Level of Care Code New Pt Level 4 (35246) Diagnoses Excessive daytime sleepiness G47.19 Periodic limb movements of sleep G47.61 Anemia, unspecified type D64.9 Anemia type: unspecified type Confusion and disorientation R41.0 RLS (restless legs syndrome) G25.81 Sleep Questionnaire Difficulty falling asleep: No Difficulty staying asleep?: Yes Number of arousals: 3 Snoring: Yes Witnessed apneas: Yes Gasping arousals: Yes Nocturia: Yes GERD: No Vivid dreams: Yes Acting out dreams: Yes Abnormal behavior in sleep: Yes (hugging or moving upper ext) Abnormal movements in sleep: No Morning headaches: No Excessive daytime sleepiness: Yes Daytime naps: No Restless legs: Yes Hallucinations: No Sleep paralysis: No Drop attacks: No Sleep Study: No CPAP: No
== END 2024-12-11 09:56 | disposition home or self-care (01) ==
LOC: HO.HSMS 08:52
PROVIDERS: PCP Internal Medicine; Visit Provider Physician Assistant Medical
DX: G47.19 Other hypersomnia (principal); G47.61 Periodic limb movement disorder; D64.9 Anemia, unspecified; R41.0 Disorientation, unspecified; G25.81 Restless legs syndrome
CPT/HCPCS: 99204

== ENCOUNTER 2024-12-12 06:38 | Outpatient (REF) | payer BC, MEDICAID, SELFPAY ==
[2024-12-12 07:37] LABS: Hematocrit 37.3 % (37.0-47.0); Hemoglobin 11.7 g/dl (12.0-16.0); Mean Corpuscular HGB Conc 31.4 g/dl (31.0-35.0); Mean Corpuscular Hemoglobin 25.2 pg (27.0-33.0); Mean Corpuscular Volume 80.2 fL (80.0-98.0); NRBC Abs Auto 0.000 X10*3/uL (0.0-0.012); NRBC Pct Auto 0.0 /100WBC (0.0-0.2); Platelet Count 225 X10*3/uL (160-400); Red Blood Count 4.65 X10*6/uL (4.20-5.50); White Blood Count 6.5 X10*3/uL (4.8-10.8)
[2024-12-12 08:13] LABS: Alanine Aminotransferase 15 U/L (0-31); Albumin Level 4.2 g/dL (3.5-5.0); Alkaline Phosphatase 40 U/L (39-117); Anion Gap 8 (12-20); Aspartate Amino Transferase 17 U/L (5-31); Blood Urea Nitrogen 8 mg/dL (9-16); Calcium 9.3 mg/dL (8.4-10.2); Carbon Dioxide 25 mmol/L (22-29); Chloride 110 mmol/L (96-108); Estimated Glomerular Filt Rate > 60; Potassium 4.1 mmol/L (3.3-5.1); Sodium 139 mmol/L (135-145); Total Protein 7.3 g/dL (6.5-8.0)
[2024-12-12 08:23] LABS: Ferritin 6 ng/mL (10-122)
[2024-12-12 09:46] LABS: Free T4 (Free Thyroxine) 1.05 ng/dL (0.71-1.85)
[2024-12-12 10:08] LABS: Folate 9.1 ng/mL (> or = 4.0); Vitamin B12 263 pg/mL (200-900)
== END 2024-12-12 06:39 | disposition home or self-care (01) ==
LOC: HO.LAB 06:38
PROVIDERS: PCP Internal Medicine; Visit Provider Physician Assistant Medical
DX: R53.83 Other fatigue (principal); D64.9 Anemia, unspecified; G47.9 Sleep disorder, unspecified
CPT/HCPCS: 36415; 80053; 82306; 82607; 82728; 82746; 83090; 83921; 84207; 84425; 84439; 84443; 85027

== ENCOUNTER 2024-12-13 16:12 | Emergency (ER) | payer BC, MEDICAID, SELFPAY ==
--- NOTE | ~2024-12-13 | CT_ITS ---
CLINICAL HISTORY: PE rule out CT angiogram chest/pulmonary arteries with contrast Multiplanar reconstructions and MIPS Comparison: None provided Findings: No filling defects are noted to suggest pulmonary embolus. Main pulmonary artery normal in caliber. Thoracic aorta normal caliber without dissection. Heart size normal. Great vessel origins patent. No coronary calcifications. No significant focal parenchymal abnormalities. No significant mediastinal or hilar adenopathy. No free pleural fluid. No acute bony abnormality noted. Impression: No evidence of pulmonary embolus This document has been electronically signed by: Kannan Wise MD on 12/13/2024 23:31:50
[2024-12-13 16:49] VITALS: BP 111/74; PULSE 70; RESP 16; TEMP 36.9; O2SAT 100; BMI 28.4
--- NOTE | 2024-12-13 16:51 | ED.GENADULT ---
HPI - General Adult General Chief complaint: General Medical Stated complaint: sob,leg cramps,lower back pain Time Seen by Provider: 12/13/24 20:54 Source: patient Mode of arrival: ambulatory Limitations: no limitations History of Present Illness ED Provider: Dr. Bae [facility] narrative: This is a 34-year-old female history of sleep apnea presented hospital today for evaluation of chest pain. Patient states she is on control. She is worried that she may have a pulmonary embolism. She is complaining of bilateral leg cramps as well. She stated that she wakes up in the middle of night with shortness of breath. She is complaining of left lower back pain. Denies any dysuria hematuria. Related Data Home Medications ?Medication ?Instructions ?Recorded ?Confirmed desogestrel-e.estradiol 0.15 1 tab PO DAILY 10/05/24 mg-0.02 mg(21)/e.estrad 0.01 mg(5) tablet (Kariva (28)) Previous Rx's ?Medication ?Instructions ?Recorded valacyclovir 1 gram tablet 1,000 mg PO DAILY #30 tabs 09/02/23 gabapentin 100 mg capsule 100 mg PO BEDTIME RLS 3 months #90 12/11/24 caps cefpodoxime 200 mg tablet 200 mg PO Q12H 20 days #40 tabs 12/13/24 Allergies Allergy/AdvReac Type Severity Reaction Status Date / Time No Known Allergies (No Known Allergy Verified 12/13/24 16:52 Allergies*) Review of Systems Review of Systems: Pertinent review of systems as mentioned in HPI. All other system otherwise negative. [facility] Past Medical History [facility] Narrative: Medical history as mentioned in [facility] Medical History Sleep apnea Overweight (BMI 25.0-29.9) History of herpes genitalis Lactating mother Anemia Surgical History No pertinent past surgical history Family History Family History Father Medical history non-contributory Mother Depression Chronic mental illness Maternal Grandmother Parkinson disease Depression Hypertension CVD (cardiovascular disease) Diabetes Maternal Grandfather Diabetes Hypertension Social History Social History Household Members: Spouse and Children Housing: Apartment Alcohol intake: former Patient Tobacco Use Status: Never used Tobacco e-Cigarette/Vaping Use: Never Used Trauma History: no hx Advance Directives: No Advance Directives Information Provided: No 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, 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 Sexual orientation: Straight/Heterosexual Gender identity: Female Cognitive needs: No Hearing needs: No Vision needs: No Physical Exam ED Exam Exam: General: Pleasant, no distress, interacting appropriately Head: Normacephalic, atraumatic ENT: oral mucosa moist, neck supple, no tracheal deviation Cardiovascular: regular rate, regular rhythm, no murmurs, rubbing, gallops Respiratory: CTAB, no wheeze, rales, rhonchi Extremities: No lower extremity swelling or identified on exam, appears to be well perfused Neurological: Awake and alert, no facial droop noted Skin: Warm and dry Psychiatric: Appropriate mood and thoughts Vital Signs: Vital Signs - 24 hr 12/13/24 16:49 Temperature 98.5 F Pulse Rate 70 Respiratory Rate 16 Blood Pressure 111/74 Pulse Oximetry 100 Oxygen Delivery Method Room Air BMI result Body Mass Index 28.4 Course Course Course Narrative: This is an RME: Additional HPI, ROS, PE not included below will be deferred to primary provider. RME assessment and note performed by: Ainsley Dhaliwal PA-C This is a [id number]-female who presents with multiple complaints. Pt reporting rapid heart rate occasional, low back pain, shortness of breath. Reports increased urination and low back pain. Plan: Labs, EKG, UA, further ER evaluation needed. Medications Administered Discontinued Medications Generic Name Dose Route Start Last Admin Trade Name Kat PRN Reason Stop Dose Admin Cephalexin HCl 500 mg 12/13/24 21:05 12/13/24 21:16 Cephalexin 500 Mg Capsule PO 12/13/24 21:06 500 mg ONCE ONE Administration Iohexol 65 ml 12/13/24 22:55 12/13/24 22:55 Iohexol 350 Mg/Ml 100 Ml Infus..Btl IV 12/13/24 22:56 65 ml ONCE ONE Administration Medical Decision Making Medical Decision Making MDM Narrative: 34-year-old female presented hospital today for evaluation of intermittent shortness of breath that wakes her up in the middle night. Patient notes that she gets occasionally tachycardic as well. We will obtain a CTA of the chest patient is certainly at risk with history of being on control. Review patient's lab work from yesterday. CBC shows slight anemia at 11.7, chemistries unremarkable, patient's UA does show signs of a UTI. Review patient's EKG. Shows normal sinus rhythm with sinus arrhythmia. No sign of STEMI Patient's CTA of the chest did not show any signs of PE. We will plan to discharge patient with a course of cefpodoxime to treat for possible pyelonephritis versus UTI. Differential Diagnosis Differential Diagnoses: The differential diagnosis associated with the presentation includes PE, pneumonia, bronchitis, cardiac arrhythmia Lab Data MDM Lab Attestation statement: I reviewed the patient's lab results. 12/13/24 17:21 Labs: Lab Results 12/13/24 Range/Units 17:21 Sodium 139 (135-145) mmol/L Potassium 3.9 (3.3-5.1) mmol/L Chloride 108 (96-108) mmol/L Carbon Dioxide 26 (22-29) mmol/L Anion Gap 9 L (12-20) BUN 14 (9-16) mg/dL Creatinine 0.97 (0.5-1.4) mg/dL Estim Creat Clear Calc 75.7 Estimated GFR > 60 Random Glucose 98 (60-115) mg/dL Calcium 9.1 (8.4-10.2) mg/dL Magnesium 2.1 (1.6-2.6) mg/dL Total Bilirubin 0.2 (0.0-1.0) mg/dL Direct Bilirubin < 0.2 (0.0-0.5) mg/dL AST 16 (5-31) U/L ALT 15 (0-31) U/L Alkaline Phosphatase 42 (39-117) U/L Total Protein 7.3 (6.5-8.0) g/dL Albumin 4.2 (3.5-5.0) g/dL TSH 1.87 (0.32-4.0) uIU/mL Urine Color Yellow Urine Appearance Clear Urine pH 7.5 (5.0-9.0) Ur Specific [place] 1.010 (1.005-1.025) Urine Protein Negative (Neg-Trace) mg/dL Urine Glucose (UA) Negative (Negative) mg/dL Urine Ketones Negative (Negative) mg/dL Urine Blood Negative (Negative) Urine Nitrite Negative (Negative) Ur Leukocyte Esterase Moderate (2+) H (Negative) Urine RBC 0-2 (0-2) /HPF Urine WBC 0-5 (0-5) /HPF Ur Squamous Epith Cells 3-5 (0-2) /HPF Urine Bacteria Trace (None Seen) Hyaline Casts 0-2 (0-2) /LPF Independent Interpretation I performed an independent interpretation of an: CT Scan Radiology Impression Discussion of test interpretation with radiology: I have reviewed the radiologist's reading. Discharge Plan Discharge Clinical Impression: Breathlessness Patient Disposition: Home, Self-Care Additional Instructions: No signs of PE on CT imaging. Take antibiotic as instructed Prescriptions: New cefpodoxime 200 mg tablet 200 mg PO Q12H 20 Days Qty: 40 0RF Rx Instructions: must administer with a meal/food No Action valacyclovir 1 gram tablet 1,000 mg PO DAILY Qty: 30 0RF Rx Instructions: One tablet 3-5 days as needed for outbreaks desog-e.estradiol/e.estradiol [Calvin (28)] 0.15-0.02 mgx21 /0.01 mg x 5 tablet 1 tab PO DAILY gabapentin 100 mg capsule 100 mg PO BEDTIME MDD 100mg 90 Days Qty: 90 0RF Print Language: Nepali
--- NOTE | 2024-12-13 16:55 | ECG_ITS ---
Test Reason : PALPITATIONS Blood Pressure : */* mmHG Vent. Rate : 71 BPM Atrial Rate : 71 BPM P-R Int : 118 ms QRS Dur : 100 ms QT Int : 416 ms P-R-T Axes : 36 45 19 degrees QTcB Int : 452 ms Normal sinus rhythm with sinus arrhythmia Incomplete right bundle branch block Borderline ECG When compared with ECG of 22-Nov-2024 02:06, No significant change was found Referred By: Ainsley Dhaliwal Electronically Signed By: CONNIE BOWLES
[2024-12-13 17:31] LABS: Appearance Urine Clear; Glucose Urine UA Negative (Negative); PH 7.5 (5.0-9.0); Specific Gravity - Urine 1.010 (1.005-1.025); UMIC TRIGGER UACC YES
[2024-12-13 17:46] LABS: Alanine Aminotransferase 15 U/L (0-31); Albumin Level 4.2 g/dL (3.5-5.0); Alkaline Phosphatase 42 U/L (39-117); Anion Gap 9 (12-20); Aspartate Amino Transferase 16 U/L (5-31); Blood Urea Nitrogen 14 mg/dL (9-16); Calcium 9.1 mg/dL (8.4-10.2); Carbon Dioxide 26 mmol/L (22-29); Chloride 108 mmol/L (96-108); Creatinine Clr Calc Pharmacy 75.7; Estimated Glomerular Filt Rate > 60; Magnesium 2.1 mg/dL (1.6-2.6); Potassium 3.9 mmol/L (3.3-5.1); Sodium 139 mmol/L (135-145); Total Protein 7.3 g/dL (6.5-8.0)
[2024-12-13 17:50] LABS: UACC Culture Trigger YES
[2024-12-13] MEDS: iohexoL 350 MG/ML 100 ML INFUS..BTL 65 ML IV (22:55)
[2024-12-14 00:55] VITALS: BP 97/68; PULSE 90; RESP 16; TEMP 36.1; O2SAT 100
== END 2024-12-14 00:56 | disposition home or self-care (01) ==
PROVIDERS: Physician Assistant Medical; Emergency Provider Student in an Organized Health Care Education/Training Program; PCP Internal Medicine
DX: R06.02 Shortness of breath (principal); R00.0 Tachycardia, unspecified; R25.2 Cramp and spasm; D64.9 Anemia, unspecified
CPT/HCPCS: 36415; 71275; 80048; 80076; 81001; 83735; 84443; 87086; 93005; 99283; 99284; Q9967

== ENCOUNTER → 2024-12-13 16:55 | Outpatient (BNV) | payer BC, MEDICAID, SELFPAY | PROVIDERS: Emergency Provider Student in an Organized Health Care Education/Training Program; PCP Internal Medicine; Visit Provider Internal Medicine | DX: I49.9 Cardiac arrhythmia, unspecified (principal); I45.10 Unspecified right bundle-branch block | CPT/HCPCS: 93010 ==

== ENCOUNTER → 2024-12-13 21:04 | Outpatient (BNV) | payer BC, MEDICAID, SELFPAY | PROVIDERS: Emergency Provider Student in an Organized Health Care Education/Training Program; PCP Internal Medicine; Visit Provider Radiology Diagnostic Radiology | DX: R07.9 Chest pain, unspecified (principal); R06.02 Shortness of breath | CPT/HCPCS: 71275 ==

== ENCOUNTER 2024-12-27 06:16 | Emergency (ER) | payer BC, MEDICAID, SELFPAY ==
[2024-12-27 06:19] VITALS: BP 117/72; PULSE 73; RESP 18; TEMP 36.4; O2SAT 100; BMI 27.8
[2024-12-27 06:37] LABS: MANUAL DIFF FLAG NO
[2024-12-27 06:39] LABS: Hematocrit 34.9 % (37.0-47.0); Hemoglobin 11.2 g/dl (12.0-16.0); Imm Gran Abs Auto 0.02 X10*3/uL (0.00-0.03); Imm Gran Pct Auto 0.3 % (0.0-0.4); Lymphocytes Absolute Auto 2.3 X10*3/uL (1.2-4.9); Mean Corpuscular HGB Conc 32.1 g/dl (31.0-35.0); Mean Corpuscular Hemoglobin 25.4 pg (27.0-33.0); Mean Corpuscular Volume 79.1 fL (80.0-98.0); NRBC Abs Auto 0.000 X10*3/uL (0.0-0.012); NRBC Pct Auto 0.0 /100WBC (0.0-0.2); Platelet Count 230 X10*3/uL (160-400); Red Blood Count 4.41 X10*6/uL (4.20-5.50); White Blood Count 7.7 X10*3/uL (4.8-10.8)
[2024-12-27 06:55] LABS: IDNOW Serial# 16C4AD1C; Influenza B2 Negative (Negative)
[2024-12-27 06:56] LABS: COVID-19 Test Negative (Negative); IDNOW Serial# 152EDE1D
--- NOTE | 2024-12-27 06:57 | ED.ABDPAIN ---
HPI - Abdominal Pain General Chief Complaint: Abdominal Pain Stated Complaint: ABD PAIN Time Seen by Provider: 12/27/24 06:48 Source: patient Mode of arrival: ambulatory Limitations: no limitations History of Present Illness ED Provider: HPI narrative: 34-year-old woman woke up with mid upper quadrant on the left side discomfort felt nauseous, had a bowel movement did not feel better felt like her pain made it dizzy then by the time she presented to the ER she felt better, no vaginal bleeding or discharge, a few days ago started taking iron supplements and also had has been on antibiotics since December 13 for questionable UTI versus pyelonephritis. No vaginal bleeding or discharge reported. Related Data Home Medications ?Medication ?Instructions ?Recorded ?Confirmed desogestrel-e.estradiol 0.15 1 tab PO DAILY 10/05/24 mg-0.02 mg(21)/e.estrad 0.01 mg(5) tablet (Kariva (28)) Previous Rx's ?Medication ?Instructions ?Recorded valacyclovir 1 gram tablet 1,000 mg PO DAILY #30 tabs 09/02/23 gabapentin 100 mg capsule 100 mg PO BEDTIME RLS 3 months #90 12/11/24 caps ferrous sulfate 325 mg (65 mg 325 mg PO DAILY 325mg 3 months 12/17/24 iron) tablet,delayed release #90 tabs Held on 12/27/24. Instructions: Resume on 01/04/25. Allergies Allergy/AdvReac Type Severity Reaction Status Date / Time No Known Allergies (No Known Allergy Verified 12/27/24 06:22 Allergies*) Review of Systems Constitutional: Reports as per HPI [facility] Past Medical History Medical History Sleep apnea Overweight (BMI 25.0-29.9) History of herpes genitalis Lactating mother Anemia Surgical History No pertinent past surgical history Family History Family History Father Medical history non-contributory Mother Depression Chronic mental illness Maternal Grandmother Parkinson disease Depression Hypertension CVD (cardiovascular disease) Diabetes Maternal Grandfather Diabetes Hypertension Social History Social History Household Members: Spouse and Children Housing: Apartment Alcohol intake: former Patient Tobacco Use Status: Never used Tobacco e-Cigarette/Vaping Use: Never Used Trauma History: no hx Advance Directives: No 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 ?CV: RRR, no obvious murmurs appreciated ? ?Resp: ?No wheezing rales rhonchi no stridor moving air well ? Abd: ?Bowel sounds are present, no tenderness no rebound no rigidity ? ?MSK: FROM, strength 5/5 all extremities ? Skin: Warm, dry, intact, ? ?Neuro: ?Alert and oriented x3, moving upper and lower extremities symmetrically, no obvious facial asymmetry noted, cranial nerves 2-12 intact Medical Decision Making Medical Decision Making [facility] Narrative: 7:10 AM 12/27/2024 (Dr. Simba Hood): Overall well-appearing patient with a completely benign abdominal exam, I reviewed her prior hospital visit on December 13 she was started on a 20 day course of antibiotics she had negative UA and urine culture is negative, I am going to discontinue antibiotics and also she started taking iron supplements that she took just a few days ago and that is a known medication to cause significant GI issues, no fevers or chills or diarrhea to suspect C diff colitis, abdominal exam is benign did not feel she needs either ultrasound to evaluate for biliary pancreatic pathology or evaluate for appendicitis or ovarian pathology with a CT or ultrasound, blood work urinalysis unremarkable anticipating discharge Differential Diagnosis Differential Diagnoses: The differential diagnosis associated with the presentation includes (Medication reaction, Cholecystitis, pancreatitis, hepatitis, gastritis, cholangitis, choledocholithiasis, appendicitis, diverticulitis, , tubo-ovarian abscess) Admission/Observation Consideration of admission/observation: Escalation of care including admission/observation considered Lab Data [facility] Lab Attestation statement: I reviewed the patient's lab results. 12/27/24 06:31 12/27/24 06:31 Labs: Lab Results 12/27/24 Range/Units 06:31 WBC 7.7 (4.8-10.8) X10*3/uL RBC 4.41 (4.20-5.50) X10*6/uL Hgb 11.2 L (12.0-16.0) g/dl Hct 34.9 L (37.0-47.0) % MCV 79.1 L (80.0-98.0) fL MCH 25.4 L (27.0-33.0) pg MCHC 32.1 (31.0-35.0) g/dl RDW 14.4 (11.0-16.0) % Plt Count 230 (160-400) X10*3/uL MPV 11.7 (9.4-12.3) fL Immature Gran % (Auto) 0.3 (0.0-0.4) % Neut % (Auto) 60.2 (45-73) % Lymph % (Auto) 29.4 (20-40) % [place]kin % (Auto) 8.4 (2-11) % Eos % (Auto) 1.2 (0-4) % Baso % (Auto) 0.5 (0-2) % Lymph # (Auto) 2.3 (1.2-4.9) X10*3/uL [place] # (Auto) 0.7 (0.1-1.2) X10*3/uL Eos # (Auto) 0.1 (0.0-0.4) X10*3/uL Baso # (Auto) 0.0 (0.0-0.2) X10*3/uL Abs Immat Gran (auto) 0.02 (0.00-0.03) X10*3/uL Absolute Neuts (auto) 4.7 (2.0-8.3) x10*3/uL Absolute Nucleated RBC 0.000 (0.0-0.012) X10*3/uL Nucleated RBC % (auto) 0.0 (0.0-0.2) /100WBC COVID-19 (DEZ) Negative (Negative) COVID-19 Clin Com See Note Influenza Type A (RADHA) Negative (Negative) Influenza Type B (RADHA) Negative (Negative) Influenza A & B Note See Note Tests considered The following testing was considered but not selected: CT abdomen and pelvis Pelvic ultrasound Prescription Management I considered prescription management with: Pain Medication Discharge Plan Discharge Clinical Impression: Abdominal cramping Instructions: Abdominal Pain (ED) Additional Instructions: Your anemia is fairly mild I recommend that you hold iron supplements for now, you can transition to something more mild as I have discussed beet juice iron supplements from any pharmacy or online tend to be better tolerated, as iron supplements have lots of gastrointestinal complications, please stop antibiotics, you do not have UTI, your workup today included blood work urinalysis physical examination vital signs all of which has been reassuring you do not have evidence for infection, dehydration or Prescriptions: Held ferrous sulfate 325 mg (65 mg iron) tablet,delayed release (DR/EC) 325 mg PO DAILY MDD 325 90 Days Qty: 90 0RF Hold Instructions: Resume on 01/04/25. Discontinued cefpodoxime 200 mg tablet 200 mg PO Q12H 20 Days Qty: 40 0RF Rx Instructions: must administer with a meal/food No Action valacyclovir 1 gram tablet 1,000 mg PO DAILY Qty: 30 0RF Rx Instructions: One tablet 3-5 days as needed for outbreaks desog-e.estradiol/e.estradiol [Kariva (28)] 0.15-0.02 mgx21 /0.01 mg x 5 tablet 1 tab PO DAILY gabapentin 100 mg capsule 100 mg PO BEDTIME MDD 100mg 90 Days Qty: 90 0RF Referrals: Pato Day MD [Primary Care Provider, Internal Medicine] - 2 weeks Clinical Impression: Abdominal cramping Stand Alone Forms: Work/School Release Print Language: Divehi
[2024-12-27 07:00] LABS: Alanine Aminotransferase 23 U/L (0-31); Albumin Level 4.0 g/dL (3.5-5.0); Alkaline Phosphatase 51 U/L (39-117); Anion Gap 11 (12-20); Aspartate Amino Transferase 22 U/L (5-31); Blood Urea Nitrogen 10 mg/dL (9-16); Calcium 8.9 mg/dL (8.4-10.2); Carbon Dioxide 22 mmol/L (22-29); Chloride 110 mmol/L (96-108); Creatinine Clr Calc Pharmacy 92.1; Estimated Glomerular Filt Rate > 60; Lipase 33 U/L (8-78); Magnesium 1.9 mg/dL (1.6-2.6); Potassium 3.5 mmol/L (3.3-5.1); Sodium 139 mmol/L (135-145); Total Protein 6.6 g/dL (6.5-8.0)
[2024-12-27 07:10] LABS: Appearance Urine Clear; Glucose Urine UA Negative (Negative); PH 5.0 (5.0-9.0); Specific Gravity - Urine 1.020 (1.005-1.025)
[2024-12-27 07:11] LABS: UPreg QC Valid YES
[2024-12-27 07:39] VITALS: BP 107/66; PULSE 73; RESP 18; TEMP 36.6; O2SAT 99
== END 2024-12-27 07:40 | disposition home or self-care (01) ==
PROVIDERS: Emergency Provider Emergency Medicine; PCP Internal Medicine
DX: R10.32 Left lower quadrant pain (principal); R11.0 Nausea; R42 Dizziness and giddiness; Z11.52 Encounter for screening for COVID-19; Z79.899 Other long term (current) drug therapy
CPT/HCPCS: 36415; 80053; 81003; 81025; 82248; 83690; 83735; 85025; 87502; 87635; 99282; 99283

== ENCOUNTER 2025-01-16 08:18 | Outpatient (REF) | payer BC, MEDICAID, SELFPAY ==
--- NOTE | 2025-01-16 10:07 | EEG_ITS ---
Reason for Exam: Disorientation R41.0 Roomed Performed:?402 History: Patient reports 5-6 episodes of waking up confused during the night, in the last few months. Patient reports last episode was two months ago. Last Meal: midnight Medication: no list available Technical description Photic stimulation: completed Hyperventilation:?good effort Behavioral state: cooperative State of Consciousness: awake and drowsy Skull defect: none Sedation: none Handedness: right Duration of study:?32 min 56 sec Description: This is a 16 channel EEG with an EKG lead. Patient is reported awake during the tracing. Background EEG rhythm is low amplitude fast with no obvious asymmetry or paroxysmal tendency. Photic stimulation does not produce any significant driving. Hyperventilation is [is unremarkable]. No sharp waves, spikes, asymmetric activity, or paroxysmal activity noted. Cardiac lead does not reveal any significant abnormality. Impression: Unremarkable EEG. MTDD
== END 2025-01-16 08:19 | disposition home or self-care (01) ==
LOC: HO.NEURO 08:18
PROVIDERS: PCP Internal Medicine; Visit Provider Physician Assistant Medical
DX: R41.0 Disorientation, unspecified (principal)
CPT/HCPCS: 95816

== ENCOUNTER → 2025-01-16 10:07 | Outpatient (BNV) | payer BC, MEDICAID, SELFPAY | PROVIDERS: PCP Internal Medicine; Visit Provider Psychiatry & Neurology Neurology | DX: R41.0 Disorientation, unspecified (principal) | CPT/HCPCS: 95816 ==

== ENCOUNTER → 2025-01-18 20:30 | Outpatient (REF) | payer BC, MEDICAID, SELFPAY | LOC: HO.SL 20:30 | PROVIDERS: PCP Internal Medicine; Visit Provider Physician Assistant Medical | DX: G47.19 Other hypersomnia (principal); G47.61 Periodic limb movement disorder | CPT/HCPCS: 95810 ==

== ENCOUNTER → 2025-01-18 21:40 | Outpatient (BNV) | payer BC, MEDICAID, SELFPAY | PROVIDERS: PCP Internal Medicine; Visit Provider Psychiatry & Neurology Neurology | DX: R06.83 Snoring (principal) | CPT/HCPCS: 95810 ==

== ENCOUNTER 2025-02-02 09:23 | Emergency (ER) | payer BC, MEDICAID, SELFPAY ==
[2025-02-02 09:58] VITALS: BP 108/69; PULSE 90; RESP 16; TEMP 37; O2SAT 99; BMI 27.8
--- NOTE | 2025-02-02 11:30 | ED_ITS ---
HPI - Neck Pain/Injury General Chief Complaint: Neck Pain/Injury Stated Complaint: stiff neck unable to move in pain Time Seen by Provider: 02/02/25 11:20 History of Present Illness HPI Narrative: Patient is a 34-year-old female presents today with having right neck pain. Patient woke up this morning was stretching her neck. Now when she turns to the right side she has pain. There is no weakness or tingling in the hands or arms. Patient from home. Did not go to a chiropractor. Did not have any abnormal movement of the neck. Patient is from home. Not on blood thinners. Not . Patient from home. Ambulates with normal gait there is no fever no chills. There is no change in vision. There is no gross change in breathing, voice. No dizziness no syncope. Related Data Home Medications ?Medication ?Instructions ?Recorded ?Confirmed desogestrel-e.estradiol 0.15 1 tab PO DAILY 10/05/24 mg-0.02 mg(21)/e.estrad 0.01 mg(5) tablet (Kariva (28)) Previous Rx's ?Medication ?Instructions ?Recorded gabapentin 100 mg capsule 100 mg PO BEDTIME RLS 3 margo hs #90 12/11/24 caps ferrous sulfate 325 mg (65 mg 325 mg PO DAILY 325mg 3 months 12/17/24 iron) tablet,delayed release #90 tabs Held on 12/27/24. Instructions: Resume on 01/04/25. valacyclovir 1 gram tablet 1,000 mg PO DAILY #30 tabs 12/27/24 cyclobenzaprine 10 mg tablet 10 mg PO TID PRN pain #14 tabs 02/02/25 ibuprofen 400 mg tablet 400 mg PO Q6H PRN pain #20 t abs 02/02/25 Allergies Allergy/AdvReac Type Severity Reaction Status Date / Time No Known Allergies (No Known Allergy Verified 02/02/25 10:01 Allergies*) Review of Systems Review of Systems: Positive pain to the right neck Yes all other systems are reviewed and are negative PMFSH Past Medical History Attestation statement: The following information was validated with the patient. Medical History Sleep apnea Overweight (BMI 25.0-29.9) History of herpes genitalis Lactating mother Anemia Surgical History No pertinent past surgical history Family History Family History Father Medical history non-contributory Mother Depression Chronic mental illness Maternal Grandmother Parkinson disease Depression Hypertension CVD (cardiovascular disease) Diabetes Maternal Grandfather Diabetes Hypertension Social History Social History Household Members: Spouse and Children Housing: Apartment Alcohol intake: former Patient Tobacco Use Status: Never used Tobacco e-Cigarette/Vaping Use: Never Used Trauma History: no hx 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 Oriented X3. No acute distress. Eyes: Pupils equal, round and reactive to light. ENT: Pharynx normal. Neck: Normal inspection. Positive pain on palpation of the right neck. Pain on movement when turning her head to the right side. No C-spine tenderness on palpation. No step-off noted. No point tenderness. No lymph nodes noted. No crepitus CVS: Normal heart rate and rhythm. Pulses normal. Normal S1 and S2 Respiratory: No respiratory distress. Breath sounds normal. No Wheezing. No rales Abdomen: Soft and nontender. No rigidity. No distention. good BS x4 Skin: Skin warm and dry. Normal skin color. Normal skin turgor. Extremities: No lower extremity edema. Neurovascular intact to all extremities. No Lacerations. No Rash Neuro: Oriented X 3. No motor deficit. No sensory deficit. Moving all extermities. No slurred speech Vital Signs: Vital Signs: Last Vital Signs Temp 98.6 F 02/02/25 09:58 Pulse 90 02/02/25 09:58 Resp 16 02/02/25 09:58 BP 108/69 02/02/25 09:58 Pulse Ox 99 02/02/25 09:58 O2 Del Method Room Air 02/02/25 09:58 BMI result Body Mass Index 27.8 Medical Decision Making Medical Decision Making MDM Narrative: Well-appearing neurologically intact has pain on the right side did not have any chiropractor did not have any erratic movement of the neck. Pain is over the trapezius muscle on the right side. Pain is worse with turning her head to the right. Patient has no focal weakness. Neurologically intact. Not on blood thinners. Not . Will start patient on NSAIDs and muscle relaxant follow-up on an outpatient basis more likely torticollis. Differential Diagnosis Differential Diagnoses: The differential diagnosis associated with the presentation includes Torticollis, dissection, fracture Admission/Observation Consideration of admission/observation: Escalation of care including admission/observation considered Social Determinants Patient?s care significantly limited by Social Determinants of Health including: Problems related to primary support group Discharge Plan Discharge Clinical Impression: Torticollis Patient Disposition: Home, Self-Care Instructions: Spasmodic Torticollis (ED) Prescriptions: New cyclobenzaprine 10 mg tablet 10 mg PO TID PRN (Reason: pain) Qty: 14 0RF ibuprofen 400 mg tablet 400 mg PO Q6H PRN (Reason: pain) Qty: 20 0RF No Action ferrous sulfate 325 mg (65 mg iron) tablet,delayed release (DR/EC) 325 mg PO DAILY MDD 325 90 Days Qty: 90 0RF valacyclovir 1 gram tablet 1,000 mg PO DAILY Qty: 30 0RF Rx Instructions: One tablet 3-5 days as needed for outbreaks desog-e.estradiol/e.estradiol [Kariva (28)] 0.15-0.02 mgx21 /0.01 mg x 5 tablet 1 tab PO DAILY gabapentin 100 mg capsule 100 mg PO BEDTIME MDD 100mg 90 Days Qty: 90 0RF Referrals: Pato Day MD [Primary Care Provider, Internal Medicine] - 02/05/25 Print Language: Belarusian
[2025-02-02 11:47] VITALS: BP 108/69; PULSE 90; RESP 16; TEMP 37; O2SAT 99
== END 2025-02-02 11:48 | disposition home or self-care (01) ==
PROVIDERS: Emergency Provider Emergency Medicine Emergency Medical Services; PCP Internal Medicine
DX: M43.6 Torticollis (principal)
CPT/HCPCS: 99282; 99283

== ENCOUNTER 2025-02-19 17:11 | Outpatient (AMB) | payer BC, MEDICAID, SELFPAY ==
[2025-02-19 17:21] VITALS: BP 100/68; PULSE 79; O2SAT 99; BMI 28.4
--- NOTE | 2025-02-19 17:21 | A.OFFPC_ITS ---
Vital Signs 02/19/25 17:21 Height 5 ft 2 in Weight 155 lb 8 oz BMI 28.4 BP 100/68 Blood Pressure Location Lt brachial Position Sitting Pulse 79 Pulse Source Pulse Oximeter Pulse Oximetry (%) 99 Oxygen Delivery Method Room Air Intake Visit Reasons: annual exam Safety And Occupational Health Manager Required: No Accompanied by: Self / Same As Patient Allergies No Known Allergies (No Known Allergies*) Allergy (Verified 02/19/25 17:59) Medication List - Last Reconciled 02/22/25 by Pato Day MD betamethasone dipropionate 0.05% 1 appl topical BID PRN cyclobenzaprine 10 mg PO TID PRN desog-e.estradiol/e.estradiol 0.15-0.02 mgx21 /0.01 mg x 5 (Kariva (28)) 1 tab PO DAILY ferrous sulfate 325 mg PO DAILY 3 months MDD 325 Held on 12/27/24. Instructions: Resume on 01/04/25. gabapentin 100 mg PO BEDTIME 3 months MDD 100mg ibuprofen 400 mg PO Q6H PRN PNV [id number] 400 mcg-35 mg- 25 mg-5 mg ( Gummies) 1 tab PO DAILY valacyclovir 1,000 mg PO DAILY Tobacco use date assessed: 02/19/25 Dental Screening Dental Screen Date: 02/19/25 Did you have a dental visit in the last 12 months?: No Was dental information given to patient?: Patient has dentist HPI annual exam HPI Details Patient comes in today for her annual physical examination States that she is currently 5 weeks This is her 5th - LMP was on 01/11/2025 and EDC is around 10/18/2025 Patient is (5-0-2-2), with her first ending in a miscarriage and her 4th spontaneously aborting at around 5 weeks AOG this past March States that she is now following up with [facility] in [place] for her care as she is considered high-risk due to her previous miscarriage/spontaneous Patient states that she has been passing out loose stools/watery diarrhea up to 4 times a day for at least a couple of weeks now She has not noticed any blood or mucus in her stool; reports (+) nausea often lately but she denies any vomiting or abdominal pain although she's had some cramping that are often relieved when she moves her bowels States that her nausea is often alleviated by snacking and she is attributing her nausea mostly to her current Reports (+) chills and some fatigue; denies any fever, headaches or dizziness States that she has pet turtles at home and is not sure if this has anything to do with her current GI symptoms She denies any chest pains, no SOB Denies any acute urinary symptoms Patient also reports (+) itchy rash in the left axillary area that has been present for over a week [facility] Medical History Sleep apnea Overweight (BMI 25.0-29.9) History of herpes genitalis Lactating mother Anemia Surgical History No pertinent past surgical history Family History Father Medical history non-contributory Mother Depression Chronic mental illness Maternal Grandmother Parkinson disease Depression Hypertension CVD (cardiovascular disease) Diabetes Maternal Grandfather Diabetes Hypertension Social History Household Members: Spouse and Children Housing: Apartment Alcohol intake: former Patient Tobacco Use Status: Never used Tobacco e-Cigarette/Vaping Use: Never Used Trauma History: no hx 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 1. Little interest or pleasure in doing things: not at all 2. Feeling down, depressed, or hopeless: not at all 3. Trouble falling or staying asleep, or sleeping too much: several days 4. Feeling tired or having little energy: several days 5. Poor appetite or overeating: more than half the days 6. Feeling bad about yourself - or that you are a failure or have let yourself or your family down: not at all 7. Trouble concentrating on things, such as reading the newspaper or watching television: several days 8. Moving or speaking so slowly that other people could have noticed. Or the opposite - being so fidgety or restless that you have been moving around a lot more than usual: not at all 9. Thoughts that you would be better off or of hurting yourself in some way: not at all Total score: 5 Depression Screening Interpretation: Positive Depression Screening Follow-up: Existing condition and Follow-up Visit Requested Depression Screening Done: Yes 34162 - PHQ-9 Billing: Yes Source: Developed by Drs. Nishant Hess, Elizabeth Almanza, Maximo Verma and colleagues, with an educational kenneth from [employer]. Thrive Questionnaire Date Thrive assessed: 02/19/25 I am a: Patient What is your living situation today?: I have a steady place to live Within the past 12 months, did the food you bought not last and you didn't have the money to get more?: Never true Within the past 12 months, did you worry whether your food would run out before you got money to buy more?: Never true Do you have trouble paying for medicines?: No Do you have trouble getting transportation to medical appointments?: No Do you have trouble paying your heating and electricity bill?: No Do you have trouble taking care of your child, family member or friend?: No Do you have trouble with day-to-day activities such as bathing, preparing meals, shopping, managing finances, etc.?: No Are you currently unemployed and looking for a job?: No Are you interested in more education?: No Please select the resources that you would like help with: None Currently or been in a relationship where the following occur: I choose not to answer THRIVE Score: 0 AUDIT C Alcohol Use Questionnaire (AUDIT-C) 1. How often do you have a drink containing alcohol?: Never 3. How often do you have six or more drinks on one occasion?: Never Total Score: 0 Score Reviewed/Action Taken: Yes KRYSTINA-7 AMB Questionnaire KRYSTINA-7 Date KRYSTINA - 7 assessed: 02/19/25 Feeling nervous, anxious, or on edge: 0 = Not at all Not being able to stop or control worryin = Not at all Worrying too much about different things: 0 = Not at all Trouble relaxin = Not at all Being so restless that it is hard to sit still: 0 = Not at all Becoming easily annoyed or irritable: 0 = Not at all Feeling afraid as if something awful might happen: 0 = Not at all Total KRYSTINA-7 score (0-4 normal; 5-9 mild; 10-14 moderate; 15-21 severe): 0 Source: Developed by Drs. Nishant Hess, Elizabeth Almanza, Maximo Verma and colleagues, with an educational kenneth from [employer]. KRYSTINA-7 Assessment Billing KRYSTINA-7 Assessment Tool: KRYSTINA-7 Assessment [id number] Review of Systems Const Reports chills (at times - see HPI), Reports fatigue, Denies fever(s), Denies headache(s) and Denies malaise Eyes Denies blurry vision, Denies change in vision, Denies irritation and Denies itchy eyes ENT Denies dysphagia, Denies dizziness, Denies otalgia, Denies headache(s), Denies nasal congestion, Denies neck pain, Denies odynophagia, Denies sinus pain and Denies sore throat Card Denies chest pain, Denies rapid heart rate, Denies irregular heart rhythm, Denies palpitations and Denies dyspnea Resp Denies chest congestion, Denies cough, Denies dyspnea and Denies wheezing GI Reports as per HPI, Denies abdominal pain ((+) cramping at times, relieved with bowel movement), Denies bloating, Denies hematochezia, Denies constipation, Denies dysphagia, Denies heartburn, Reports diarrhea (usually post-prandial), Reports loose stools, Reports nausea, Denies odynophagia and Denies vomiting Reports as per HPI, Denies hematuria, Denies difficulty voiding, Denies dysuria, Denies urinary incontinence and Denies urinary urgency Musc Denies back pain, Denies arthralgias, Denies joint swelling, Denies muscle weakness and Denies neck pain Skin/Breast Denies breast pain, Denies breast mass, Denies change in pigmentation, Denies lesions, Reports rash (recurrent itchy rash at the left axilla) and Denies unusual bruising Neuro Denies dizziness, Denies headache(s) and Denies paresthesias Psych Denies anxiety and Denies depression Endo Reports fatigue and Denies palpitations Rainer/Lymph Denies easy bruising Aller/Immun Denies itchy eyes and Denies wheezing Physical exam (Primary Care) Vital Signs: Last Vital Signs Pulse 79 02/19/25 17:21 BP 100/68 02/19/25 17:21 Pulse Ox 99 02/19/25 17:21 Oxygen Delivery Method Room Air 02/19/25 17:21 BMI result Body Mass Index 28.4 Tobacco/Smoking Status: Tobacco use Status Tobacco use date assessed 02/19/25 02/19/25 17:30 Patient Tobacco Use Status Never used Tobacco 02/19/25 17:30 e-Cigarette/Vaping Use Never Used 02/19/25 17:30 PHQ-9: PHQ-9 Score PHQ-9: Total score 5 02/22/25 02:29 Depression Screening Interpretation: Positive Depression Screening Follow-up: Existing condition and Follow-up Visit Requested Thrive Assessment: Date of Thrive Assessment Date Thrive assessed 02/19/25 02/19/25 17:30 Currently or been in a relationship where the following occur: I choose not to answer Const General: no acute distress, alert and awake Orientation/consciousness: patient oriented x3 HENMT Head: Yes normocephalic and Yes atraumatic Ears: external ears normal, TM's normal bilaterally and EAC's normal General nose exam: No nasal discharge present Face and sinus: Yes normal facial exam and Yes sinuses nontender Teeth and gingiva: dentition normal Throat: Yes posterior oropharynx normal and Yes tonsils normal (no TP congestion) Eyes Eyelids: Yes eyelids normal Conjunctivae: conjunctivae normal Pupils: Equal, round and reactive pupils present EOM: EOMs intact bilaterally Neck Neck: Yes supple and No lymphadenopathy Thyroid: Thyroid normal Resp Auscultation: clear to auscultation bilaterally, no rales and no wheezes Cardio Rate: regular rate Rhythm: regular rhythm Heart sounds: no murmurs GI Palpation (GI): Soft to palpation, nontender and No hepatosplenomegaly present Auscultation: normal bowel sounds General: Yes no CVA tenderness Back/Spine/Pelvis Back: no CVA tenderness Thoracic/Lumbar Spine: No lumbar spinal tenderness Skin Lesions: no lesions Rashes: rashes noted ((+) erythematous circular rash at the left axillary area) Neuro General: patient oriented x3, moves all extremities, no focal motor deficits and CN's II-XI intact bilaterally Cranial nerves: Yes Equal, round and reactive pupils present Cognition (Neuro): normal cognition Gait exam (Neuro): Normal gait present Extrem General: Yes no clubbing, cyanosis or edema Coding Level of Care Code Est Pt Prev Care 18-39y(82074) Diagnoses Annual physical exam Z00.00 First trimester Z34.91 Diarrhea, unspecified type R19.7 Diarrhea type: unspecified type History of herpes genitalis Z86.19 Rash R21 RLS (restless legs syndrome) G25.81 Overweight (BMI 25.0-29.9) E66.3 Additional Codes KRSYTINA-7 Assessment Billing - KRYSTINA-7 Assessment Tool: KRYSTINA-7 Assessment [id number] ([id number]) PHQ-9 - 92119 - PHQ-9 Billing: Yes ([id number]) Assessment & Plan Assessment & Plan (1) Annual physical exam: Code(s): Z00.00 - Encounter for general adult medical examination without abnormal findings Category: Medical Plan: Check labs BROOKE to complete her annual exam today (2) First trimester : Code(s): Z34.91 - Encounter for supervision of normal , unspecified, first trimester Category: Medical Plan: This is patient's 5th - LMP was on 01/11/2025 and EDC is around 10/18/2025 She is (5-0-2-2), with her first ending in a miscarriage and her 4th spontaneously aborting at around 5 weeks AOG this past March (2024) She is now following up with [facility] in [place] for her care as she is considered high-risk due to her previous miscarriage/spontaneous abort ion (3) Diarrhea: Code(s): R19.7 - Diarrhea, unspecified Category: Medical Qualifiers: Diarrhea type: unspecified type Qualified Code(s): R19.7 - Diarrhea, unspecified Plan: Advised patient that because she has pet turtles at home, we should work her up for her diarrhea in case it is infectious in origin, as having pet turtles puts her at risl for Salmonella infections Will send her for stool work ups, including stool culture, O & P, and stool for WBC, for further evaluation Have advised her to make sure she stays adequately hydrated while she still has diarrhea/loose stools (4) History of herpes genitalis: Code(s): Z86.19 - Personal history of other infectious and parasitic diseases Category: Medical Plan: She currently has no acute genital lesions Continue Valacyclovir PRN as instructed for acute outbreaks but as she is currently , have advised her to reach out to her assistant athletic trainer first before taking her Valtrex when needed (5) Rash: Code(s): R21 - Rash and other nonspecific skin eruption Category: Medical Plan: This may be a fungal rash or eczema but as she is currently , would try to avoid antifungals at this time Will start her on Betamethasone dipropionate 0.05% to the rash BID PRN (6) RLS (restless legs syndrome): Code(s): G25.81 - Restless legs syndrome Category: Medical Plan: She is currently taking Gabapentin 100 mg Q HS for her RLS but have advised her to double check with her assistant athletic trainer to see if they are okay with her contin uing on this medication throughout her as there are no definitive existing data on the safety of Gabapentin during (7) Overweight (BMI 25.0-29.9): Code(s): E66.3 - Overweight Category: Medical Plan: Reinforced diet/exercise as tolerated/lose weight Plan To return in 1 year for her next annual physical exam although patient is advised that we will reach out to her if any of her labs and stool work ups come back abnormal She is also advised to reach out to us at any time before her annual exam next year for anything that she will need, including during her current that her [facility] would not be able to address Orders: Orders Routine Culture w Gram Stain 02/19/25 R19.7 - Diarrhea, unspecified Ova and Parasite Today R19.7 - Diarrhea, unspecified Comprehensive [place]. Panel Fast 02/20/25 E78.00 - Pure hypercholesterolemia, unspecified, Z00.00 - Encounter for general adult medical examination without abnormal findings TSH reflex Free T4 02/20/25 E78.00 - Pure hypercholesterolemia, unspecified, Z00.00 - Encounter for general adult medical examination without abnormal findings UA CC w/rflx Micro + Cult 02/20/25 R30.0 - Dysuria, Z00.00 - Encounter for general adult medical examination without abnormal findings Leukocytes Stool Qualitative Today R19.7 - Diarrhea, unspecified Complete Blood Count Auto Diff 11/26/25 D64.9 - Anemia, unspecified, Z00.00 - Encounter for general adult medical examination without abnormal findings Lipid Panel 02/20/25 E78.00 - Pure hypercholesterolemia, unspecified, Z00.00 - Encounter for general adult medical examination without abnormal findings Vitamin D 25-OH Total 02/20/25 E55.9 - Vitamin D deficiency, unspecified, Z00.00 - Encounter for general adult medical examination without abnormal findings Medications: New betamethasone dipropionate 0.05% 1 appl topical BID PRN 45 grams 0RF skin irritation/rash
== END 2025-02-19 18:12 | disposition home or self-care (01) ==
LOC: HO.HMCH 17:12
PROVIDERS: PCP Internal Medicine; Visit Provider Internal Medicine
DX: Z00.00 Encounter for general adult medical examination without abnormal findings (principal); Z34.91 Encounter for supervision of normal pregnancy, unspecified, first trimester; R19.7 Diarrhea, unspecified; Z86.19 Personal history of other infectious and parasitic diseases; R21 Rash and other nonspecific skin eruption; G25.81 Restless legs syndrome; E66.3 Overweight

== ENCOUNTER → 2025-02-19 17:11 | Outpatient (BNVA) | payer BC, MEDICAID, SELFPAY | PROVIDERS: PCP Internal Medicine; Visit Provider Internal Medicine | DX: Z00.00 Encounter for general adult medical examination without abnormal findings (principal); O26.891 Other specified pregnancy related conditions, first trimester; R19.7 Diarrhea, unspecified; R11.0 Nausea; R21 Rash and other nonspecific skin eruption; G25.81 Restless legs syndrome; E66.3 Overweight; Z86.19 Personal history of other infectious and parasitic diseases; Z68.28 Body mass index [BMI] 28.0-28.9, adult | CPT/HCPCS: 96127 ==

== ENCOUNTER 2025-02-20 06:57 | Outpatient (REF) | payer BC, MEDICAID, SELFPAY ==
[2025-02-20 07:12] LABS: MANUAL DIFF FLAG NO
[2025-02-20 07:57] LABS: Appearance Urine Cloudy; Glucose Urine UA Negative (Negative); PH 6.0 (5.0-9.0); Specific Gravity - Urine 1.020 (1.005-1.025); UMIC TRIGGER UACC YES
[2025-02-20 07:58] LABS: Hematocrit 35.5 % (37.0-47.0); Hemoglobin 11.2 g/dl (12.0-16.0); Imm Gran Abs Auto 0.04 X10*3/uL (0.00-0.03); Imm Gran Pct Auto 0.5 % (0.0-0.4); Lymphocytes Absolute Auto 1.7 X10*3/uL (1.2-4.9); Mean Corpuscular HGB Conc 31.5 g/dl (31.0-35.0); Mean Corpuscular Hemoglobin 25.0 pg (27.0-33.0); Mean Corpuscular Volume 79.2 fL (80.0-98.0); NRBC Abs Auto 0.000 X10*3/uL (0.0-0.012); NRBC Pct Auto 0.0 /100WBC (0.0-0.2); Platelet Count 205 X10*3/uL (160-400); Red Blood Count 4.48 X10*6/uL (4.20-5.50); White Blood Count 8.8 X10*3/uL (4.8-10.8)
[2025-02-20 08:00] LABS: UACC Culture Trigger YES
[2025-02-20 08:45] LABS: Alanine Aminotransferase 13 U/L (0-31); Albumin Level 4.2 g/dL (3.5-5.0); Alkaline Phosphatase 51 U/L (39-117); Anion Gap 11 (12-20); Aspartate Amino Transferase 20 U/L (5-31); Blood Urea Nitrogen 11 mg/dL (9-16); Calcium 8.9 mg/dL (8.4-10.2); Carbon Dioxide 23 mmol/L (22-29); Chloride 108 mmol/L (96-108); Cholesterol 162 mg/dL (<200); Estimated Glomerular Filt Rate > 60; HDL Cholesterol 44 mg/dL (>40); Potassium 3.6 mmol/L (3.3-5.1); Sodium 138 mmol/L (135-145); Total Protein 6.8 g/dL (6.5-8.0); Triglycerides 71 mg/dL (<150)
== END 2025-02-20 06:58 | disposition home or self-care (01) ==
LOC: HO.LAB 06:57
PROVIDERS: PCP Internal Medicine; Visit Provider Internal Medicine
DX: Z00.00 Encounter for general adult medical examination without abnormal findings (principal); D64.9 Anemia, unspecified; E78.00 Pure hypercholesterolemia, unspecified; E55.9 Vitamin D deficiency, unspecified
CPT/HCPCS: 36415; 80053; 80061; 81001; 82306; 84443; 85025; 87086; 87147

== ENCOUNTER 2025-02-22 10:30 | Outpatient (REF) | payer BC, MEDICAID, SELFPAY ==
[2025-02-22 12:40] LABS: Leukocytes Stool Qualitative NEGATIVE (NEGATIVE)
== END 2025-02-22 10:31 | disposition home or self-care (01) ==
LOC: HO.LNP 10:30
PROVIDERS: Visit Provider Internal Medicine
DX: R19.7 Diarrhea, unspecified (principal)
CPT/HCPCS: 87177; 87209; 89055